=== PATIENT | male | born 1965 | race Caucasian/White ===

== ENCOUNTER 2025-05-01 06:24 | Observation (INO) ==
--- NOTE | 2025-04-04 13:37 | PAT Medication Instructions ---
Medication Instructions Date of Service April 04, 2025 Home Medications Medication Instructions Recorded tramadol 50 mg tablet 50 mg PO Q8H PRN pain #30 tabs 03/23/25 empagliflozin 25 mg tablet (Jardiance) 25 mg PO QAM metformin 500 mg tablet 1,000 mg PO BID glipizide 10 mg tablet 10 mg PO QAM aspirin 81 mg tablet,delayed release 81 mg PO QAM atorvastatin 80 mg tablet 80 mg PO QAM isosorbide mononitrate 60 mg tablet,extended release 24 hr 60 mg PO QAM lisinopril 5 mg tablet 5 mg PO QAM metoprolol tartrate 25 mg tablet 50 mg PO QAM nitroglycerin 0.4 mg sublingual tablet 0 mg sublingual UD PRN chest pain tirzepatide 5 mg/0.5 mL subcutaneous pen injector (Mounjaro) 10 mg subcut WK tramadol 50 mg tablet 50 mg PO Q8H PRN pain amlodipine 2.5 mg tablet 2.5 mg PO QAM cholecalciferol (vitamin D3) 50 mcg (2,000 unit) capsule (Vitamin D3) 50 mcg PO QAM docusate sodium 100 mg capsule (Colace) 100 mg PO QAM epinephrine 0.3 mg/0.3 mL injection, auto-injector 0.3 mg IM UD PRN bee sting allergy Continue as directed epinephrine 0.3 mg/0.3 mL injection, auto-injector 0.3 mg IM UD PRN bee sting allergy (if needed) nitroglycerin 0.4 mg sublingual tablet 0 mg sublingual UD PRN chest pain (if needed) STOP taking at least 7 days before surgery tirzepatide 5 mg/0.5 mL subcutaneous pen injector (Mounjaro) 10 mg subcut WK STOP taking 3 days before surgery empagliflozin 25 mg tablet (Jardiance) 25 mg PO QAM DO NOT take the morning of surgery metformin 500 mg tablet 1,000 mg PO BID glipizide 10 mg tablet 10 mg PO QAM lisinopril 5 mg tablet 5 mg PO QAM cholecalciferol (vitamin D3) 50 mcg (2,000 unit) capsule (Vitamin D3) 50 mcg PO QAM docusate sodium 100 mg capsule (Colace) 100 mg PO QAM Take morning of surgery With a small sip of water, OTHERWISE NOTHING TO EAT OR DRINK AFTER MIDNIGHT: aspirin 81 mg tablet,delayed release 81 mg PO QAM (unless surgeon directed otherwise) atorvastatin 80 mg tablet 80 mg PO QAM isosorbide mononitrate 60 mg tablet,extended release 24 hr 60 mg PO QAM metoprolol tartrate 25 mg tablet 50 mg PO QAM tramadol 50 mg tablet 50 mg PO Q8H PRN pain (if needed) amlodipine 2.5 mg tablet 2.5 mg PO QAM Take evening before surgery metformin 500 mg tablet 1,000 mg PO BID tramadol 50 mg tablet 50 mg PO Q8H PRN pain (if needed) Other Notes If you have any questions please call us at [phone] or [phone] or [phone] or [phone]
--- NOTE | 2025-04-10 08:54 | Anesthesiology Consultation ---
Date of Service April 10, 2025 Assessment & Plan (1) Encounter for pre-operative examination: - Check BSG DOS - Infectious disease screening: Per assessment on 04/10/25- No known recent infectious disease contacts or current infectious disease symptoms. - Outpatient joint assessment: Pt currently scheduled for inpatient pathway. If surgeon requests review for outpatient joint pathway, patient is not recommended candidate for outpatient joint program from anesthesia standpoint based on available information. - GLP-1 medication instructions: Patient informed by PAT to stop 7 days prior to surgery- voiced understanding. DOS 05/01. Advised last dose to be 04/23. - Cardiology visit (08/24/24): "Presence of coronary angioplasty implant and graft.. Episodes of chest pain described as a pressure are persistent and now associated with lightheadedness but not palpitations.. Lexiscan myoview.. normotensive today.. Continue current antihypertensive regimen.. Lipids are at goal.. Remain compliant with cpap.." > Subsequent abnormal stress test done 10/2024 which led to cardiac cath being done 11/2024 (unremarkable findings; continued medical management recommended by cardiology). Chart Review Chart Review: Patient seen in Pre Admission Testing Teaching & Discussion Pre-Anesthesia Teaching/Discussion Notes: Instructed NPO after midnight before surgery,except medications with 15 cc of water. Medication instructions provided according to the PAT guidelines. History Surgery Operation Date: 05/01/25 11:15 Proposed Procedures p Robotic Assisted Left Total Knee Arthroplasty - Dylan Wise, Height/Weight Height: 6 ft 1 in Weight: 124.5 kg Allergies Allergy/AdvReac Type Severity Reaction Status Date / Time bee pollen Allergy Unknown Throat Verified 04/04/25 13:58 swelling (required ED visit), carries Epi pen Medications Home Medications Medication Instructions Recorded Confirmed Last Taken empagliflozin 25 mg tablet 25 mg PO QAM 05/11/19 04/04/25 Unknown (Jardiance) metformin 500 mg tablet 1,000 mg PO BID 05/11/19 04/04/25 Unknown glipizide 10 mg tablet 10 mg PO QAM 09/30/21 04/04/25 Unknown aspirin 81 mg tablet,delayed 81 mg PO QAM 05/07/23 04/04/25 Unknown release atorvastatin 80 mg tablet 80 mg PO QAM 05/07/23 04/04/25 Unknown isosorbide mononitrate 60 mg 60 mg PO QAM 05/07/23 04/04/25 Unknown tablet,extended release 24 hr lisinopril 5 mg tablet 5 mg PO QAM 05/07/23 04/04/25 Unknown metoprolol tartrate 25 mg tablet 50 mg PO QAM 05/07/23 04/04/25 Unknown nitroglycerin 0.4 mg sublingual 0 mg sublingual UD PRN chest pain 05/07/23 04/04/25 Unknown tablet tirzepatide 5 mg/0.5 mL 10 mg subcut WK 08/01/24 04/04/25 04/02/25 subcutaneous pen injector (Sundar) tramadol 50 mg tablet 50 mg PO Q8H PRN pain #30 tabs 03/23/25 04/04/25 Unknown amlodipine 2.5 mg tablet 2.5 mg PO QAM 04/04/25 04/04/25 Unknown cholecalciferol (vitamin D3) 50 50 mcg PO QAM 04/04/25 04/04/25 Unknown mcg (2,000 unit) capsule (Vitamin D3) docusate sodium 100 mg capsule 100 mg PO QAM 04/04/25 04/04/25 Unknown (Colace) epinephrine 0.3 mg/0.3 mL 0.3 mg IM UD PRN bee sting allergy 04/04/25 04/04/25 Unknown injection, auto-injector Past Medical History Medical History CAD (coronary artery disease) 2020- PCI RUTH Mid LAD 11/2024- no stents, medical management recommended Cervical spine arthritis Diabetes History of COVID-19 (2020) HTN (hypertension), benign Left knee DJD Lumbar degenerative disc disease Lumbar herniated disc L5-S1 Right knee DJD Sleep apnea CPAP (occasional use) Tear of meniscus of left knee Thyroid nodule Monitored by pcp, stable Exercise / Class Metabolic Activity II 4-5 Yardwork/Stairs/Walk up hill (one FS: No CP, no SOB) Past Surgical History Surgical History History of bilateral carpal tunnel release History of cardiac cath 2020- PCI RUTH Mid LAD 11/2024- no stents, medical management recommended History of colonoscopy Past Anesthesia History No Hx of Anesthesia Complications and No Family Hx of Anesthesia Complications History of PONV No Hx of PONV and No Hx of Motion Sickness Social History Smoking Status: Never smoker Do You Dip or Chew Tobacco: Yes (Daily- advised none DOS) Hx Alcohol Use: Yes alcohol intake frequency: holidays/special occasions only Hx Substance Use: No substance use type: does not use Review of Systems Patient denies chest pain, shortness of breath, dyspnea on exertion, fever, chills, cough, wheezing, palpitations. Physical Exam Vital Signs BP 105/69 P 79 TEMP 97.4 SP02 97%RA RESP 16 Physical Full cervical extension range of motion. Full TMJ range of motion. TMD 3 finger breaths Mallampati Score II Dentition: missing molars/sides Lungs: clear throughout to auscultation Cardiac: regular rate and rhythm, no murmurs noted Spine: normal Carotid arteries: negative bruit Extremities: no LE edema Lab Results Anesthesia Preop Results Results Anesthesia Widget: WBC 6.68 K/ul (4.8-10.8) 04/10/25 Hgb 14.9 g/dl (14.0-18.0) 04/10/25 Hct 43.4 % (42.0-52.0) 04/10/25 Plt 252 K/uL (130-400) 04/10/25 Na 139 mmol/L (136-145) 04/10/25 K 4.2 mmol/L (3.5-5.1) 04/10/25 Cl 105 mmol/L (98-107) 04/10/25 CO2 27 mmol/L (21-32) 04/10/25 BUN 15 mg/dl (6-23) 04/10/25 Creat 0.71 mg/dl (0.6-1.4) 04/10/25 Glucose Level 162 mg/dl (70-99(Fasting)) H 04/10/25 PT 10.3 Seconds (9.0-12.0) 04/10/25 PTT 27 Seconds (21-31) 04/10/25 INR 0.9 (0.9-1.1) 04/10/25 HA1c 6.6 % (4.5-5.6) H 04/10/25 Blood Type O Positive 04/10/25 Antibody Screen NEGATIVE 04/10/25 Testing Electrocardiogram Date: 11/18/24 NSR at 62bpm. Low voltage QRS, consider pulmonary disease, pericardial effusion or normal variant. Poor data quality noted. Compared to 08/24/2024, PVCs no longer present per lime mixer comparison. Chest X-Ray Date: 04/10/25 FINDINGS: Cardiomediastinal and hilar silhouettes are within normal limits. No pneumothorax, pleural effusion, airspace consolidation or pulmonary edema. Spondylitic spurring of the spine. Bones appear grossly intact. IMPRESSION: No acute process. Stress Test Date: 10/28/24 Type: nuclear Abnormal Lexiscan nuclear myocardial perfusion imaging study demonstrating small apical inferior infarct with significant víctor-infarct ischemia involving the base, mid, and apical inferior wall. Ischemia likely involves RCA vascular territory. Resting LVEF 64%. Stress LVEF 52%. Cardiac Catheterization Date: 11/18/24 Hemodynamically insignificant coronary disease. Mild diffuse distal RCA disease. Mild LAD 30% stenosis. Patent stent in distal LAD. Mild diffuse disease in distal LAD beyond the stent. OM1 30% stenosis. Recommendations medical management of nonobstructive CAD.
--- NOTE | 2025-04-26 16:19 | History & Physical Report ---
Date of Service April 26, 2025 Assessment & Plan (1) Left knee DJD: We will proceed with a left total knee arthroplasty. Postoperatively, he will be started on aspirin for DVT prophylaxis and kept overnight in the hospital for postop medical management. He plans to have the hospital set up home health for discharge. History of Present Illness Chief Complaint: Osteoarthritis left knee. Primary Care Provider: Jhonatan Wong is a pleasant 59-year-old male who has been dealing with chronic increasing left knee pain. He is really struggling with his left knee. He has had a left knee arthroscopy in the past. He was one of my providers. He has been doing viscosupplementation without relief. He has an MRI of his left knee. The MRI confirms advanced medial compartmental arthritis. After failing conservative treatment, he has elected proceed with a left total knee arthroplasty. Allergies Allergy/AdvReac Type Severity Reaction Status Date / Time bee pollen Allergy Unknown Throat Verified 04/04/25 13:58 swelling (required ED visit), carries Epi pen Home Medications Medication Instructions Recorded Confirmed Type empagliflozin 25 mg tablet 25 mg PO QAM 05/11/19 04/04/25 History (Jardiance) metformin 500 mg tablet 1,000 mg PO BID 05/11/19 04/04/25 History glipizide 10 mg tablet 10 mg PO QAM 09/30/21 04/04/25 History aspirin 81 mg tablet,delayed 81 mg PO QAM 05/07/23 04/04/25 History release atorvastatin 80 mg tablet 80 mg PO QAM 05/07/23 04/04/25 History isosorbide mononitrate 60 mg 60 mg PO QAM 05/07/23 04/04/25 History tablet,extended release 24 hr lisinopril 5 mg tablet 5 mg PO QAM 05/07/23 04/04/25 History metoprolol tartrate 25 mg tablet 50 mg PO QAM 05/07/23 04/04/25 History nitroglycerin 0.4 mg sublingual 0 mg sublingual UD PRN chest pain 05/07/23 04/04/25 History tablet tirzepatide 5 mg/0.5 mL 10 mg subcut WK 08/01/24 04/04/25 History subcutaneous pen injector (Sundar) tramadol 50 mg tablet 50 mg PO Q8H PRN pain #30 tabs 03/23/25 04/04/25 Rx amlodipine 2.5 mg tablet 2.5 mg PO QAM 04/04/25 04/04/25 History cholecalciferol (vitamin D3) 50 50 mcg PO QAM 04/04/25 04/04/25 History mcg (2,000 unit) capsule (Vitamin D3) docusate sodium 100 mg capsule 100 mg PO QAM 04/04/25 04/04/25 History (Colace) epinephrine 0.3 mg/0.3 mL 0.3 mg IM UD PRN bee sting allergy 04/04/25 04/04/25 H istory injection, auto-injector Past Med/Surg History Problem List Encounter for pre-operative examination Low back pain radiating to left lower extremity Spondylolisthesis, grade 1 Spondylolysis of lumbar region Cervical radiculopathy Lumbar degenerative disc disease Cervical spine arthritis Hip weakness Neuroforaminal stenosis of lumbar spine Right knee DJD Left knee DJD Lumbar disc herniation Lumbar radiculopathy Thyroid nodule (Chronic) Cervical disc herniation (Chronic) Cervical facet syndrome (Chronic) Cervicalgia (Chronic) Medical History Lumbar herniated disc L5-S1 Cervical spine arthritis Left knee DJD Right knee DJD Lumbar degenerative disc disease History of COVID-19 (2020) Sleep apnea CPAP (occasional use) Thyroid nodule Monitored by pcp, stable CAD (coronary artery disease) 2020- PCI RUTH Mid LAD 11/2024- no stents, medical management recommended Tear of meniscus of left knee Diabetes HTN (hypertension), benign Surgical History History of colonoscopy History of cardiac cath 2020- PCI RUTH Mid LAD 11/2024- no stents, medical management recommended History of bilateral carpal tunnel release Social History Smoking Status: Never smoker Tobacco Type: Smokeless Tobacco (Dip or Chew) Do You Dip or Chew Tobacco: Yes (Daily- advised none DOS); Hx Alcohol Use: Yes Hx Substance Use: No Preferred Language: Serbian Communication Ability: Effective Communication Ability Comment: pt is at work per , listed hippa contact, offers to do phone call. Visual Impairment: No Limitations Hearing Ability: Normal Hand Umbrella Tipper Required: No Beliefs That Will Affect Care: None marital status: Current Living Situation: Spouse current occupational status: employed current occupation: Manager [employer] Feels Safe at Home: Yes Assistive Devices: CPAP and Glasses Review of Systems All systems reviewed & are unremarkable except as noted in HPI & below. Physical Exam On physical exam of the left knee, he has a slight varus deformity. He has tenderness palpation of the distal medial femoral condyle and over the medial kostas int line.. Constitutional WD/WN, vitals as above Eyes PERRL, conjunctivae normal, anicteric sclerae ENMT external ear and nose normal, oropharynx normal Neck trachea midline, no thyromegaly Respiratory normal respiratory effort Cardiovascular RRR, no murmur, no edema Gastrointestinal (Abdomen) normal bowel sounds, soft, nontender, no hepatosplenomegaly Psychiatric A+Ox3, euthymic affect Results & Data Results & Data Laboratory Results . Diagnostic Findings X-rays of the left knee show advanced medial compartmental arthritis with joint space narrowing, osteophyte formation, and [id number] reticulation. PG Care Time/CCT Total # of Minutes Spent Total Time Spent with Patient: Total time spent is greater than 50% in coordination of care (as documented) at patient's floor/unit and/or counseling patient: Coding Level of Care Code None Diagnoses Left knee DJD M17.12
[2025-05-01] MEDS ORDERED: BUPIVACAINE 0.5 % 5 MG/1 ML PF 10ML VIAL ONE (06:27)
[2025-05-01] MEDS ORDERED: ROPIVACAINE 0.5% 5 MG/ML 30 ML VIAL ONE (06:27)
[2025-05-01] MEDS: LR 60ML/HR IV SCH (06:46)
[2025-05-01] MEDS: LR 500ML BOLUS, THEN 15ML/HR IV SCH (06:46)
[2025-05-01] MEDS: GABAPENTIN 300 MG CAP PO SCH (06:47)
[2025-05-01] MEDS: ACETAMINOPHEN 500 MG TAB PO SCH ×2 (06:47→13:55)
[2025-05-01] MEDS: FAMOTIDINE 20 MG TAB PO SCH (06:47)
[2025-05-01] MEDS: dexAMETHasone**PF** 10 MG/ML VIAL IV SCH (06:47)
[2025-05-01] MEDS ORDERED: LIDOCAINE 2% 2 ML VIAL/AMP(20MG/ML) INFIL ONE (07:05)
[2025-05-01] MEDS ORDERED: DexMEDEtomidine HCL IV 100 MCG/ML VIAL IV ONE (07:05)
[2025-05-01] MEDS ORDERED: MIDAZOLAM HCL 1 MG/ML 2ML VIAL ONE ×2 (07:05→08:06)
[2025-05-01] MEDS ORDERED: KETAMINE HCL 10MG/ML SYR ONE (07:05)
[2025-05-01] MEDS ORDERED: PROPOFOL IV EMULSION 10 MG/ML 20 ML VIAL IV ONE (07:05)
[2025-05-01] MEDS ORDERED: ONDANSETRON INJ 2 MG/ML 2 ML VIAL ONE (07:07)
[2025-05-01] MEDS: TRANEXAMIC ACID 1,000 MG **IV Pre-op IV SCH (07:40)
--- NOTE | 2025-05-01 07:43 | History & Physical Bridge Note ---
Date of Service May 01, 2025 History & Physical Bridge Note I have examined the patient, reviewed the History & Physical and in the interval since the performance of the History & Physical I have noted the following changes of clinical significance: no changes noted
[2025-05-01] MEDS: ceFAZolin 3000MG 3,000 MG/72.5 ML BAG IV SCH (07:55)
[2025-05-01] MEDS ORDERED: GLYCOPYRROLATE 0.2 MG/ML VIAL ONE (07:59)
[2025-05-01] MEDS: ORTHO JOINT ANESTHETIC ONE (08:35)
[2025-05-01] MEDS: ROPIV 0.5% 246mg, Ketorolac 30mg, EPINEPHrine 0.5mg in NSS INFIL SCH (08:35)
[2025-05-01] MEDS ORDERED: PHENYLEPHRINE 100MCG/ML 5ML SYR ONE (08:39)
--- NOTE | 2025-05-01 10:28 | XRay Report ---
XR knee LT 1 or 2V routine HISTORY: 59 years-old Male Surgical Post Op left knee arthroplasty COMPARISON: MRI 03/16/2025 TECHNIQUE: 2 views of the left knee FINDINGS: Satisfactory alignment of the total joint arthroplasty with patellar resurfacing. Arterial calcificat ions. Expected postoperative soft tissue swelling with deep tissue air. IMPRESSION: Left knee arthroplasty with expected postoperative findings. ACT 112: Negative or not required by law. The above report was generated using voice recognition software. It may contain grammatical, syntax o r spelling errors. Electronically signed by: Karl Stone M.D. 05/01/2025 10:27 AM
--- NOTE | 2025-05-01 10:34 | Operative Report ---
PG Post Operative Report Pre & Post Diagnosis Operation Date: 05/01/25 07:55 Pre-Op Diagnosis: Left Knee Degenerative Joint Disease Post-Op Diagnosis: Left Knee Degenerative Joint Disease I identified the patient and participated in the time-out.: Yes Procedure Operation Date: 05/01/25 07:55 Actual Procedures p Robotic Assisted Left Total Knee Arthroplasty(Left) - Dylan Wise DO Surgeon Dylan Wise DO Fibrous Wallboard Inspector Terry Lucero PA-C Estimated Blood Loss 30 Findings Consistent with Post-Op Diagnosis Specimens Left femoral and tibial bone Description of Procedure Implants used: I used a Ariela Persona total knee arthroplasty system with a size 11 standard femur, G tibia, 31 oval patella, and a size 10 CPS polyethylene bearing. All components were cemented in place with Biomet cement. Marvin plummer [facility] for the above procedure. He was seen in the preoperative holding area and the operative extremity was identified and signed. he was given a preoperative antibiotic, TXA, a spinal anesthetic and an adductor nerve block. He was taken back to the operating room and laid on the table in supine position. He was given basic sedation. The operative knee was then prepped and draped in sterile fashion. A timeout was done, and the patient and the operative extremity was properly identified. A midline incision was made directly over the patella. Dissection was taken down to the extensor mechanism. A medial parapatellar arthrotomy was used. The medial retinaculum was released and the fat pad was mostly excised. The knee was flexed and the ACL, PCL, and meniscus were removed. The alignment of the knee replacement was assisted with a [employer] robotic knee. The femoral array was pinned in the distal femur and the tibial array was pinned using a percutaneous technique in the upper shaft of the tibia. The robot was appropriately calibrated and the structure of the knee was mapped out. The components were then manipulated on the screen to account for any malalignment and to assist in gap balancing. Once I was happy with the placement of the components on the screen, a distal femoral cutting guide was brought in place. The distal femur was then resected. The femur measured to be a size 11. A 4-in-1 cutting block was then put into place by the robot and 2 peg holes were drilled. The 4-in-1 cutting block was then impacted into place and anterior, posterior, and chamfer cuts were made. The cutting block was then brought down to the tibia and pinned into place. The proximal tibia was then resected. The posterior aspect of the knee was then opened up and any additional meniscus fragments and osteophytes were removed. The tibia measured to be a size G. The tibial plate was then placed in the appropriate rotation and the tibia was drilled and punched. Trial components were then placed. The patella was then everted and 9 mm was resected off the posterior aspect of the patella. The patella measured to be a size 31 oval. 3 peg holes were then drilled. A trial patella was placed. A size 10 CPS polyethylene insert was then trialed. The knee was brought through a full range of motion and felt to be stable. Trial components were then removed. The surrounding soft tissues were injected with 100 cc of an orthopedic pain control cocktail. All components were then cemented into place with Biomet cement. The final polyethylene insert was then snapped into place. Once cement was dry the tourniquet was deflated. Hemostasis was obtained. A dilute betadyne lavage was then done for 3 minutes. The joint was then irrigated with normal saline solution. The medial parapatellar arthrotomy was then closed with #1 Vicryl suture. The skin was closed with 2-0 Vicryl, 3-0V lock suture, and Cindy zip line. A soft compressive dressing was placed. He was then transferred to a hospital bed and taken to the postanesthesia care unit in stable condition. He tolerated the procedure well. Terry Lucero PA-C, was present for the entire procedure. He was critical for patient positioning, prepping, draping, retraction exposure, wound closure and application of sterile dressing. I attest to the content of the Intraoperative Record and any orders documented therein. Any exceptions are noted below.
--- NOTE | 2025-05-01 10:49 | Anesthesiology Progress Note ---
Date of Service May 01, 2025 Anesthesia Post Procedure Vital Signs Vital Signs: Temp Pulse Pulse Resp BP Pulse Ox O2 Del Method 05/01/25 10:45 60 13 110/59 L 94 Nasal Cannula 05/01/25 10:30 62 12 106/61 93 Nasal Cannula 05/01/25 10:20 36.6 C 61 19 103/59 L 95 Nasal Cannula 05/01/25 10:10 59 L 15 102/60 95 Oxymask 05/01/25 10:00 57 L 12 108/60 93 Oxymask 05/01/25 09:50 60 18 103/61 93 Oxymask 05/01/25 09:47 36.8 C 66 16 90/55 L 96 Oxymask 05/01/25 06:31 Room Air, CPAP 05/01/25 06:31 36.6 C 62 18 144/86 H 97 Room Air, CPAP O2 Flow Rate 05/01/25 10:45 2 05/01/25 10:30 2 05/01/25 10:20 2 05/01/25 10:10 3 05/01/25 10:00 3 05/01/25 09:50 6 05/01/25 09:47 6 05/01/25 06:31 05/01/25 06:31 Pain Intensity Left Knee: Pain Intensity: 6 Transfer of Care Handoff Completed per policy Notes Mental Status: alert / awake / arousable Patient Amnestic to Procedure: Yes Nausea / Vomiting: adequately controlled Pain: adequately controlled Airway Patency, RR, SpO2: stable & adequate BP & HR: stable & adequate Hydration State: stable & adequate Neuraxial Anesthesia: was administered and sensory block is resolving Anesthetic Complications: no major complications apparent and Pt Satisfied with anesthetic care
[2025-05-01] MEDS ORDERED: HYDROmorphone INJ 0.5 MG/0.5 ML SYR IV PRN (11:30)
[2025-05-01] MEDS ORDERED: MAGNESIUM HYDROXIDE SUSP 30 ML UDC PO PRN (11:30)
[2025-05-01] MEDS ORDERED: METOCLOPRAMIDE HCL INJ 5 MG/ML 2 ML VIAL IV PRN (11:30)
[2025-05-01] MEDS ORDERED: PHARMACY GLYCEMIC MGMT CONSULT PRN (11:30)
[2025-05-01] MEDS ORDERED: ONDANSETRON INJ 2 MG/ML 2 ML VIAL IV PRN (11:30)
[2025-05-01] MEDS ORDERED: NON-FORMULARY MEDICATION (Tirzepatide [Mounjaro] 5 mg/0.5 mL pen injector) SQ SCH (11:30)
[2025-05-01] MEDS ORDERED: NALOXONE HCL 0.4 MG/1 ML VIAL/CARP IV PRN (11:30)
[2025-05-01] MEDS ORDERED: EPINEPHrine INJ 1 MG/ML AMP IM PRN (11:45)
[2025-05-01] MEDS: SODIUM CHLORIDE 0.9% 1,000 ML IV SCH (12:11)
[2025-05-01] MEDS ORDERED: DEXTROSE 50% 50 ML SYRINGE IV PRN (12:15)
[2025-05-01] MEDS ORDERED: GLUCAGON FOR INJ 1 MG VIAL SQ PRN (12:15)
[2025-05-01] MEDS ORDERED: CARBOHYDRATES FOR HYPOGLYCEMIA PO PRN (12:15)
[2025-05-01] MEDS ORDERED: GLUCOSE 10 TAB/TUBE PO PRN (12:15)
[2025-05-01] MEDS ORDERED: GLUCOSE 40% GEL 15 GM TUBE PO PRN (12:15)
[2025-05-01] MEDS: INSULIN ASPART PER UNIT CHARGE SC SCH (12:33)
[2025-05-01] MEDS: LANTUS PER UNIT CHARGE SC ONE (12:33)
[2025-05-01] MEDS: KETOROLAC TROMETHAMINE 15 MG/ML VIAL IV SCH (12:36)
--- NOTE | 2025-05-01 14:03 | Pharmacy Report ---
Pharmacy Glycemic Short Note 2 - Date of Service May 01, 2025 - Glycemic Short BSG Results (Last 24 hours): 05/01/25 05/01/25 05/01/25 06:42 09:51 11:55 POC Glucose 217 H 202 H 198 H OUTPATIENT ANTIDIABETIC REGIMEN: * jardiance 25 mg daily, glipizide 10 mg daily, metformin 1 gm bid, mounjaro 10 mg SQ weekly ASSESSMENT: * 59 year old s/p surgery, POD 0 - pharmacy consulted for glycemic management. Postop BSG >180 - did receive IV dexamethasone preoperatively therefore anticipate steroid induced hyperglycemia. Will give Lantus 0.2units/kg x 1 now to cover steroid effects and start novolog weight based stress 3 dosing. PLAN FOR INPATIENT GLYCEMIC CONTROL: * Hold outpatient oral diabetes medications * Basal insulin * Lantus 25 units x 1 now * Bolus insulin * NovoLog per scale ACHS or Q6hrs while NPO * Goal Range: Low 110 mg/dL - High 140 mg/dL * Correction Factor: 15 mg/dL/unit * Nutritional / Prandial insulin per carb ratio of 1 unit per 5 grams CHO c onsumed
[2025-05-01 14:31] VITALS: RESP 16
[2025-05-01] MEDS: DOCUSATE SODIUM 100 MG CAP PO SCH (20:25)
[2025-05-01] MEDS: SENNA 8.6 MG TAB PO SCH (20:25)
[2025-05-01] MEDS: ASPIRIN 81 MG ECTAB PO SCH (20:25)
[2025-05-01] MEDS: LANTUS PER UNIT CHARGE SC SCH (20:37)
[2025-05-02] MEDS: INSULIN ASPART PER UNIT CHARGE SC SCH (00:08)
[2025-05-02 07:33] VITALS: TEMP 97.9; O2SAT 96
[2025-05-02] MEDS: LANTUS PER UNIT CHARGE SC SCH (08:17)
[2025-05-02 08:22] VITALS: BP 141/79; PULSE 62
[2025-05-02] MEDS: METOPROLOL SUCC 50MG EXT REL TAB PO SCH (08:23)
[2025-05-02] MEDS: ATORVASTATIN 40 MG TAB PO SCH (08:23)
[2025-05-02] MEDS: MULTIVITAMIN TAB PO SCH (08:23)
[2025-05-02] MEDS: ISOSORBIDE MONO EXTENDED REL 60 MG TABCR PO SCH (08:24)
--- NOTE | 2025-05-02 08:49 | Orthopedic Progress Note ---
Date of Service May 02, 2025 Assessment & Plan (1) Status post total left knee replacement: * Continue Current Treatment * Disposition: home * Daily treatment: Physical Therapy/ Occupational Therapy per protocol * Weight bearing status: WBAT * Continue to monitor for ABLA * Pain control * DVT prophylaxis, ASA * Office/hospital f/u 2 weeks for progress check and staple/suture removal * Plan for discharge today pending PT/OT clearance Subjective . Active Problems: S/p left TKA POD 1 59 y/o male s/p left TKA. Doing well overall, pain managed and improved function. Denies fever/chills, chest pain/SOB, nausea/vomiting. Otherwise no complaints. Review of Systems All systems reviewed & are unremarkable except as noted in HPI & below. Physical Exam . * General: Alert and oriented, no acute distress * Constitutional: well-developed, well-nourished. * Respiratory: Normal respiratory effort, no distress * Gastrointestinal: No tenderness to palpation, no rigidity or guarding. * Skin: No rash or lesion. * Neurologic: Grossly normal * Musculoskeletal: left knee surgical dressing CDI, not removed for exam. Otherwise no obvious deformity or overlying skin changes RLE. Diffuse TTP distal thigh and knee region. Otherwise no specific tenderness of proximal thigh, lower leg, foot/ankle. AROM knee flexion 110 degrees. AROM foot/ankle intact. Sensation intact plantar/dorsal foot. Brisk capillary refill. Results & Data Results & Data Laboratory Results . Diagnostic Findings . Knee X-Ray 05/01/25 09:50 XR knee LT 1 or 2V routine HISTORY: 59 years-old Male Surgical Post Op left knee arthroplasty COMPARISON: MRI 03/16/2025 TECHNIQUE: 2 views of the left knee FINDINGS: Satisfactory alignment of the total joint arthroplasty with patellar resurfacing. Arterial calcifications. Expected postoperative soft tissue swelling with deep tissue air. IMPRESSION: Left knee arthroplasty with expected postoperative findings. ACT 112: Negative or not required by law. The above report was generated using voice recognition software. It may contain grammatical, syntax or spelling errors. Electronically signed by: Karl Stone M.D. 05/01/2025 10:27 AM PG Care Time/CCT Total # of Minutes Spent Total Time Spent with Patient: Total time spent is greater than 50% in coordination of care (as documented) at patient's floor/unit and/or counseling patient: Coding Level of Care Code 99851 Post Operative Follow-Up Diagnoses Status post total left knee replacement Z96.652
[2025-05-02] MEDS ORDERED: glipiZIDE 5 MG TAB PO SCH (09:00)
[2025-05-02] MEDS ORDERED: EMPAGLIFLOZIN 25 MG TAB PO SCH (09:00)
== END 2025-05-02 10:43 | disposition home or self-care (01) ==
LOC: ASU 06:24 → 3N 06:24 → EDINP 06:24

== ENCOUNTER 2025-08-11 08:12 | Inpatient (IN) ==
--- NOTE | 2025-08-01 10:45 | PAT Medication Instructions ---
Medication Instructions Date of Service August 01, 2025 Home Medications Medication Instructions Recorded tramadol 50 mg tablet 50 mg PO Q8H PRN pain #30 tabs 07/05/25 metformin 500 mg tablet 1,000 mg PO BID glipizide 10 mg tablet 10 mg PO QAM atorvastatin 80 mg tablet 80 mg PO QAM isosorbide mononitrate 60 mg tablet,extended release 24 hr 60 mg PO QAM lisinopril 5 mg tablet 5 mg PO QAM metoprolol tartrate 25 mg tablet 50 mg PO QAM nitroglycerin 0.4 mg sublingual tablet 0 mg sublingual UD PRN chest pain tirzepatide 5 mg/0.5 mL subcutaneous pen injector (Mounjaro) 10 mg subcut WK amlodipine 2.5 mg tablet 2.5 mg PO QAM cholecalciferol (vitamin D3) 50 mcg (2,000 unit) capsule (Vitamin D3) 50 mcg PO QAM docusate sodium 100 mg capsule (Colace) 100 mg PO QAM epinephrine 0.3 mg/0.3 mL injection, auto-injector 0.3 mg IM UD PRN bee sting allergy tramadol 50 mg tablet 50 mg PO Q8H PRN pain aspirin 81 mg tablet,delayed release 81 mg PO DAILY Continue as directed nitroglycerin 0.4 mg sublingual tablet 0 mg sublingual UD PRN chest pain (if needed) epinephrine 0.3 mg/0.3 mL injection, auto-injector 0.3 mg IM UD PRN bee sting allergy (if needed) ASK your prescriber and surgeon aspirin 81 mg tablet,delayed release 81 mg PO DAILY STOP taking at least 7 days before surgery tirzepatide 5 mg/0.5 mL subcutaneous pen injector (Mounjaro) 10 mg subcut WK DO NOT take the morning of surgery metformin 500 mg tablet 1,000 mg PO BID glipizide 10 mg tablet 10 mg PO QAM lisinopril 5 mg tablet 5 mg PO QAM cholecalciferol (vitamin D3) 50 mcg (2,000 unit) capsule (Vitamin D3) 50 mcg PO QAM docusate sodium 100 mg capsule (Colace) 100 mg PO QAM Take morning of surgery With a small sip of water, OTHERWISE NOTHING TO EAT OR DRINK AFTER MIDNIGHT: atorvastatin 80 mg tablet 80 mg PO QAM isosorbide mononitrate 60 mg tablet,extended release 24 hr 60 mg PO QAM metoprolol tartrate 25 mg tablet 50 mg PO QAM amlodipine 2.5 mg tablet 2.5 mg PO QAM tramadol 50 mg tablet 50 mg PO Q8H PRN pain (if needed) Take evening before surgery metformin 500 mg tablet 1,000 mg PO BID tramadol 50 mg tablet 50 mg PO Q8H PRN pain (if needed) Other Notes If you have any questions please call us at [phone] or [phone] or [phone] or [phone]
--- NOTE | 2025-08-01 12:50 | Anesthesiology Consultation ---
Date of Service August 01, 2025 Assessment & Plan (1) Encounter for pre-operative examination: - Check BSG DOS - Infectious disease screening: Per assessment on 08/01/25- No known recent infectious disease contacts or current infectious disease symptoms. - GLP-1 medication instructions: Patient informed by PAT to stop 7 days prior to surgery- voiced understanding. DOS 08/11. Patient unsure which day of the week he will be taking next dose but aware not to take after 08/04/25. - Cardiology visit (08/24/24): "Presence of coronary angioplasty implant and graft.. Episodes of chest pain described as a pressure are persistent and now associated with lightheadedness but not palpitations.. Lexiscan myoview.. normotensive today.. Continue current antihypertensive regimen.. Lipids are at goal.. Remain compliant with cpap.." > Subsequent abnormal stress test done 10/2024 which led to cardiac cath being done 11/2024 (unremarkable findings; continued medical management recommended by cardiology). - S/P Left TKA 05/01/25: SAB + regional at [facility]. No issues noted per post-op anesthesia progress note. - PCP visit 08/02/25: "He manages his diabetes with Mounjaro 10 mg weekly, which is on hold until after his surgery, metformin ER 500 mg, two tablets twice daily, and Toujeo insulin 24 units daily. He is overdue for a follow-up with medication therapy management for diabetes control.. Postoperative DKA after knee replacement. On Mounjaro, metformin ER, and Toujeo insulin. Mounjaro on hold until surgery.. Continue metformin ER 500 mg, two tablets twice daily.. Continue Toujeo insulin 24 units daily... Hold Mounjaro until after surgery per Ortho team.. Notify MTM team of upcoming procedure and concerns.. Complete diabetic eye exam today. Hypotension.. Blood pressure at 92/53 mmHg without symptoms. Inactivity due to pain.. Stop amlodipine due to current blood pressure.. Monitor home blood pressure readings.. Report consistent numbers less than 100/60 at rest or any new symptomatic concerns.. Coronary artery disease status post angioplasty with implant and graft.. History of angioplasty and stent placement. No current chest pain. Overdue for cardiology follow-up.. Continue Imdur 60 mg daily.. Continue lisinopril 5 mg daily.. Continue metoprolol ER 25 mg, two tablets daily.. Schedule cardiology follow-up." - Medical therapy management (MTM) clinic Pharmacy note 08/04/25: "[facility] planned lumbar spine surgery.[facility] DKA following knee replacement 05/2025. Patient/ express concern about risks for similar episodes following surger y. Mounjaro to be held 2 weeks prior to surgery.. Per patient, anticipated to be admitted to hospital for 3-4 days following surgery.. STOPPED in : Toujeo U300 24 units daily.. STARTED: Glipizide XL 10mg daily.." - Spoke with Angelina ([facility]IP[facility] contact) via phone 08/07/25. She confirmed that amlodipine has been stopped and BP has significantly improved- monitoring closely at home; most recent BP check at home was 117/72. She confirmed Toujeo has been discontinued by [facility] MTM clinic that manages patient's diabetes and they are aware of upcoming surgery. Chart Review Chart Review: Acceptable Risk for Surgery (pending evlauation DOS) and Patient seen in Pre Admission Testing Teaching & Discussion Pre-Anesthesia Teaching/Discussion Notes: Instructed NPO after midnight before surgery,except medications with 15 cc of water. Medication instructions provided according to the PAT guidelines. History Surgery Operation Date: 08/11/25 09:20 Proposed Procedures p L5-S1 Anterior Lumbar Interbody Fusion with Cage Posterior Fusion Instrumentation Decompression Spinal Cord Monitoring - Bertin Briones MD Height/Weight Height: 6 ft 1 in Weight: 122.3 kg Allergies Allergy/AdvReac Type Severity Reaction Status Date / Time bee pollen Allergy Severe Throat Verified 08/01/25 07:36 swelling (required ED visit), carries Epi pen Medications Home Medications Medication Instructions Recorded Confirmed Last Taken metformin 500 mg tablet 1,000 mg PO BID 05/11/19 08/01/25 04/29/25 glipizide 10 mg tablet 10 mg PO QAM 09/30/21 08/01/25 04/27/25 atorvastatin 80 mg tablet 80 mg PO QAM 05/07/23 08/01/25 05/01/25 05:00 isosorbide mononitrate 60 mg 60 mg PO QAM 05/07/23 08/01/25 05/01/25 05:00 tablet,extended release 24 hr lisinopril 5 mg tablet 5 mg PO QAM 05/07/23 08/01/25 04/29/25 metoprolol tartrate 25 mg tablet 50 mg PO QAM 05/07/23 08/01/25 05/01/25 05:00 nitroglycerin 0.4 mg sublingual 0 mg sublingual UD PRN chest pain 05/07/23 08/01/25 Unknown tablet tirzepatide 5 mg/0.5 mL 10 mg subcut WK 08/01/24 08/01/25 04/23/25 subcutaneous pen injector (Mounjaro) cholecalciferol (vitamin D3) 50 50 mcg PO QAM 04/04/25 08/01/25 04/27/25 mcg (2,000 unit) capsule (Vitamin D3) docusate sodium 100 mg capsule 100 mg PO QAM 04/04/25 08/01/25 04/27/25 (Colace) epinephrine 0.3 mg/0.3 mL 0.3 mg IM UD PRN bee sting allergy 04/04/25 08/01/25 Unknown injection, auto-injector tramadol 50 mg tablet 50 mg PO Q8H PRN pain #30 tabs 07/05/25 08/01/25 Unknown aspirin 81 mg tablet,delayed 81 mg PO DAILY 08/01/25 08/01/25 Unknown release Past Medical History Medical History CAD (coronary artery disease) 2020- PCI RUTH Mid LAD 11/2024- no stents, medical management recommended Cervical disc herniation Cervical facet syndrome Cervical radiculopathy Cervical spine arthritis Diabetes History of COVID-19 (2020) HTN (hypertension), benign Hx of diabetes with ketoacidosis (05/2025) [facility] 05/2025 DM meds adjusted, no issues since Low back pain radiating to left lower extremity Lumbar degenerative disc disease Lumbar herniated disc L5-S1 Neuroforaminal stenosis of lumbar spine Right knee DJD Sleep apnea CPAP Spondylolisthesis, grade 1 Thyroid nodule Monitored by pcp, stable Exercise / Class Metabolic Activity II 4-5 Yardwork/Stairs/Walk up hill (One FS: No CP, no SOB) Past Surgical History Surgical History History of bilateral carpal tunnel release History of cardiac cath (11/2024) 2020- PCI RUTH Mid LAD- [place] 11/2024- no stents, medical management recommended- Jennifer- follows with dr. Eli Khan- [facility] (last saw 08/2024) History of colonoscopy Status post total left knee replacement (04/2025) Past Anesthesia History No Hx of Anesthesia Complications and No Family Hx of Anesthesia Complications History of PONV No Hx of PONV and No Hx of Motion Sickness Social History Smoking Status: Never smoker Do You Dip or Chew Tobacco: No Hx Alcohol Use: Yes alcohol intake frequency: holidays/special occasions only (Very rare) Hx Substance Use: No substance use type: does not use Review of Systems Patient denies chest pain, shortness of breath, dyspnea on exertion, fever, chills, cough, wheezing. Physical Exam Vital Signs BP 106/65 P 79 TEMP 98.2 SP02 97%RA RESP 16 Physical Full cervical extension range of motion. Full TMJ range of motion. TMD 3 finger breaths Mallampati Score II Dentition: missing molars/sides Lungs: clear throughout to auscultation Cardiac: regular rate and rhythm, no murmurs noted Spine: normal Carotid arteries: negative bruit Extremities: no LE edema Lab Results Anesthesia Preop Results Results Anesthesia Widget: WBC 7.20 K/ul (4.8-10.8) 08/01/25 Hgb 13.3 g/dL (14.0-18.0) L 08/01/25 Hct 38.9 % (42.0-52.0) L 08/01/25 Plt 284 K/uL (130-400) 08/01/25 Na 136 mmol/L (136-145) 08/01/25 K 4.3 mmol/L (3.5-5.1) 08/01/25 Cl 102 mmol/L (98-107) 08/01/25 CO2 27 mmol/L (21-32) 08/01/25 BUN 17 mg/dl (6-23) 08/01/25 Creat 0.61 mg/dl (0.6-1.4) 08/01/25 Glucose Level 201 mg/dl (70-99(Fasting)) H 08/01/25 PT 10.3 Seconds (9.0-12.0) 08/01/25 PTT 25 Seconds (21-31) 08/01/25 INR 1.0 (0.9-1.1) 08/01/25 HA1c 7.6 % (4.5-5.6) H 08/01/25 Blood Type O Positive 08/01/25 Antibody Screen NEGATIVE 08/01/25 Testing Electrocardiogram Date: 11/18/24 NSR at 62bpm. Low voltage QRS, consider pulmonary disease, pericardial effusion or normal variant. Poor data quality noted. Compared to 08/24/2024, PVCs no longer present per liquor blender comparison. Chest X-Ray Date: 04/10/25 FINDINGS: Cardiomediastinal and hilar silhouettes are within normal limits. No pneumothorax, pleural effusion, airspace consolidation or pulmonary edema. Spondylitic spurring of the spine. Bones appear grossly intact. IMPRESSION: No acute process. Stress Test Date: 10/28/24 Type: nuclear Abnormal Lexiscan nuclear myocardial perfusion imaging study demonstrating small apical inferior infarct with significant víctor-infarct ischemia involving the base, mid, and apical inferior wall. Ischemia likely involves RCA vascular territory. Resting LVEF 64%. Stress LVEF 52%. Cardiac Catheterization Date: 11/18/24 Hemodynamically insignificant coronary disease. Mild diffuse distal RCA di sease. Mild LAD 30% stenosis. Patent stent in distal LAD. Mild diffuse disease in distal LAD beyond the stent. OM1 30% stenosis. Recommendations medical management of nonobstructive CAD.
[2025-08-11] MEDS ORDERED: LIDOCAINE 2% 2 ML VIAL/AMP(20MG/ML) INFIL ONE ×2 (08:28→09:04)
[2025-08-11] MEDS ORDERED: ONDANSETRON INJ 2 MG/ML 2 ML VIAL ONE (08:28)
[2025-08-11] MEDS ORDERED: ROCURONIUM BROMIDE 10 MG/ML 5 ML VIAL IV ONE ×3 (08:28→12:22)
[2025-08-11] MEDS ORDERED: PROPOFOL IV EMULSION 10 MG/ML 20 ML VIAL IV ONE (08:28)
[2025-08-11] MEDS ORDERED: MIDAZOLAM HCL 1 MG/ML 2ML VIAL ONE (08:31)
[2025-08-11] MEDS ORDERED: SUGAMMADEX SODIUM 200 MG/2 ML VIAL IV ONE ×2 (08:32→15:26)
[2025-08-11] MEDS: LR 15ML/HR IV SCH (08:38)
[2025-08-11] MEDS: ACETAMINOPHEN 500 MG TAB PO SCH (08:47)
[2025-08-11] MEDS: LR 60ML/HR IV SCH (08:52)
[2025-08-11] MEDS ORDERED: ATROPINE SULFATE 0.1 MG/ML 10ML SYR IV PRN (09:13)
[2025-08-11] MEDS ORDERED: ONDANSETRON INJ 2 MG/ML 2 ML VIAL IV PRN ×2 (09:13→19:15)
--- NOTE | 2025-08-11 09:40 | History & Physical Bridge Note ---
Date of Service August 11, 2025 History & Physical Bridge Note I have examined the patient, reviewed the History & Physical and in the interval since the performance of the History & Physical I have noted the following changes of clinical significance: no changes noted
[2025-08-11] MEDS ORDERED: REMIFENTANIL HCL 1 MG VIAL IV ONE (09:52)
[2025-08-11] MEDS: ceFAZolin 3000MG 3,000 MG/72.5 ML BAG IV SCH ×2 (10:20→21:58)
[2025-08-11] MEDS: VANCOMYCIN HCL 1000MG/20ML VIAL ONE (14:26)
[2025-08-11] MEDS ORDERED: KETAMINE HCL 10MG/ML SYR ONE (15:06)
[2025-08-11] MEDS ORDERED: ceFAZolin 330 MG/ML 1 GM VIAL ONE (15:16)
[2025-08-11] MEDS: THROMBIN 5000 UNITS KIT ONE (15:16)
[2025-08-11] MEDS: GELATIN SPONGE 12-7MM ONE (15:16)
[2025-08-11] MEDS: ceFAZolin 3000MG 3,000 MG/72.5 ML BAG IV ONE (15:18)
[2025-08-11] MEDS ORDERED: DEXAMETHASONE SOD INJ 4 MG/ML VIAL ONE (15:29)
[2025-08-11] MEDS ORDERED: PHENYLEPHRINE HCL 10 MG/ML VIAL ONE (15:34)
[2025-08-11] MEDS ORDERED: PROPOFOL IV EMULSION 10 MG/ML 100 ML VIAL IV ONE (15:39)
[2025-08-11] MEDS: BUPIVACAINE/EPINEPHRINE 0.5% MPF 1:200,000 30 ML VIAL ONE (15:59)
--- NOTE | 2025-08-11 17:02 | Post Operative Brief Note ---
PG Immediate Post Op with CF Date of Surgery August 11, 2025 Pre & Post Diagnosis Operation Date: 08/11/25 09:20 Pre-Op Diagnosis: (1) Low back pain radiating to left lower extremity (2) Spondylolisthesis, grade 1 (3) Spondylolysis of lumbar region (4) Lumbar radiculopathy Post-Op Diagnosis: (1) Low back pain radiating to left lower extremity (2) Spondylolisthesis, grade 1 (3) Spondylolysis of lumbar region (4) Lumbar radiculopathy I identified the patient and participated in the time-out.: Yes Procedure Operation Date: 08/11/25 09:20 Actual Procedures p L5-S1 Anterior Lumbar Interbody Fusion with Cage Posterior Fusion Percutaneous Instrumentation with Spinal Cord Monitoring(Not Applicable) - Bertin Briones MD Surgeon Bertin Briones MD Explosive Ordnance Disposal Specialist Simba Estimated Blood Loss 500 Findings Consistent with Post-Op Diagnosis Specimens Specimen Description: No specimen per surgeon Drains Britt Catheter (Inserted at procedure start by Madhavi Zabala RN; 10cc in balloon; clear, yellow urine returned, leg strap applied)
[2025-08-11] MEDS: HYDROmorphone INJ 0.5 MG/0.5 ML SYR IV PRN (17:12)
[2025-08-11] MEDS: HYDROmorphone INJ 1 MG/ML SYRINGE ONE (17:30)
--- NOTE | 2025-08-11 17:57 | Anesthesiology Progress Note ---
Date of Service August 11, 2025 Anesthesia Post Procedure Vital Signs Vital Signs: Temp Pulse Resp BP Pulse Ox O2 Del Method O2 Flow Rate 08/11/25 17:45 83 12 166/96 H 100 Nasal Cannula 2 08/11/25 17:35 36.3 C L 78 12 163/90 H 100 Nasal Cannula 2 08/11/25 17:25 80 12 164/89 H 99 Nasal Cannula 2 08/11/25 17:15 78 17 190/98 H 100 Nasal Cannula 4 08/11/25 17:04 80 17 190/98 H 100 Nasal Cannula 4 08/11/25 16:55 81 17 100 Nasal Cannula 4 08/11/25 16:45 82 14 185/90 H 100 Nasal Cannula 4 08/11/25 16:35 81 15 182/97 H 100 Oxymask 5 08/11/25 16:25 82 19 170/98 H 100 Oxymask 5 08/11/25 16:15 36.0 C L 84 19 159/89 H 98 Oxymask 5 08/11/25 08:17 36.9 C 82 20 159/87 H 97 Room Air Pain Intensity Lower Back: Pain Intensity: 4 Transfer of Care Handoff Completed per policy Notes Mental Status: alert / awake / arousable and participated in evaluation Patient Amnestic to Procedure: Yes Nausea / Vomiting: adequately controlled Pain: adequately controlled Airway Patency, RR, SpO2: stable & adequate BP & HR: stable & adequate Hydration State: stable & adequate Anesthetic Complications: no major complications apparent and Pt Satisfied with anesthetic care
[2025-08-11] MEDS ORDERED: ALUMINUM/MAGNESIUM SUSP 30 ML UDC PO PRN (19:15)
[2025-08-11] MEDS ORDERED: SOD PHOSPHATE/SOD BIPHOSPHATE ENEMA 132 ML BTL PR PRN (19:15)
[2025-08-11] MEDS ORDERED: DO NOT ADMINISTER PNEUMOCOCCAL VACCINE PRN (19:15)
[2025-08-11] MEDS ORDERED: MAGNESIUM HYDROXIDE SUSP 30 ML UDC PO PRN (19:15)
[2025-08-11] MEDS ORDERED: ACETAMINOPHEN 1,000 MG/100 ML VIAL IV PRN (19:15)
[2025-08-11] MEDS ORDERED: NITROGLYCERIN SL 0.4 MG/TAB TAB SL PRN (19:15)
[2025-08-11] MEDS ORDERED: PROMETHAZINE 12.5 MG/50.5 ML BAG IV PRN (19:15)
[2025-08-11] MEDS ORDERED: DO NOT ADMINISTER FLU VACCINE PRN (19:15)
[2025-08-11] MEDS ORDERED: NALOXONE HCL 0.4 MG/1 ML VIAL/CARP IV PRN (19:15)
[2025-08-11] MEDS ORDERED: PHARMACY GLYCEMIC MGMT CONSULT PRN (19:15)
[2025-08-11] MEDS ORDERED: diphenhydrAMINE Capsule 25 MG CAP PO PRN (19:15)
[2025-08-11] MEDS ORDERED: ONDANSETRON 4 MG OD TAB PO PRN (19:15)
[2025-08-11] MEDS ORDERED: FAMOTIDINE 20 MG TAB PO PRN (19:15)
[2025-08-11] MEDS ORDERED: METOCLOPRAMIDE HCL INJ 5 MG/ML 2 ML VIAL IV PRN (19:15)
[2025-08-11] MEDS: LACTATED RINGER'S 1,000 ML IV SCH (19:43)
[2025-08-11] MEDS: KETOROLAC 30 MG/ML VIAL IV SCH (19:44)
[2025-08-11] MEDS: DOCUSATE SODIUM/SENNA 50/8.6MG TAB PO SCH (20:18)
[2025-08-11] MEDS ORDERED: DEXTROSE 50% 50 ML SYRINGE IV PRN (20:45)
[2025-08-11] MEDS ORDERED: GLUCOSE 40% GEL 15 GM TUBE PO PRN (20:45)
[2025-08-11] MEDS ORDERED: GLUCAGON FOR INJ 1 MG VIAL SQ PRN (20:45)
[2025-08-11] MEDS ORDERED: CARBOHYDRATES FOR HYPOGLYCEMIA PO PRN (20:45)
[2025-08-11] MEDS ORDERED: GLUCOSE 10 TAB/TUBE PO PRN (20:45)
--- NOTE | 2025-08-11 21:49 | Consultation ---
Date of Consultation August 11, 2025 Assessment & Plan (1) Post-operative state: 59-year-old male with past medical history significant for type 2 diabetes, history of HHS, history of DKA, diabetic mononeuropathy, hyperlipidemia, sleep apnea, CAD status post stent, hypertension, obesity, essential tremor, status post back surgery. Has some soreness at surgical site. Afebrile. Denies headache. Vision is okay. No nausea. No cough. No runny nose or sore throat. Denies any chest pain. No shortness of breath. No abdominal pain. Micturating okay. Hemodynamics are okay. Postoperative state status post back surgery Management as per orthospine Diabetes Sliding scale Glycemic pharmacy consulted Close monitor Sleep apnea CPAP nightly History of CAD s/p stent On aspirin, statin, Imdur, metoprolol tartrate Hypertension On metoprolol tartrate, Imdur and lisinopril Will monitor Hyperlipidemia On statin DVT prophylaxis and disposition As per Ortho History of Present Illness Reason for Consultation: Status post back surgery Attending Physician: Bertin Briones MD History of Present Illness 59-year-old male with past medical history significant for type 2 diabetes, history of HHS, history of DKA, diabetic mononeuropathy, hyperlipidemia, sleep apnea, CAD status post stent, hypertension, obesity, essential tremor, status post back surgery. Has some soreness at surgical site. Afebrile. Denies headache. Vision is okay. No nausea. No cough. No runny nose or sore throat. Denies any chest pain. No shortness of breath. No abdominal pain. Micturating okay. Hemodynamics are okay. Past medical history. As mentioned above. Past surgical history. Bilateral carpal tunnel surgery. Colonoscopy. Left heart catheterization. Right knee scope. Social history. . Snuff tobacco. Alcohol occasional use. No drug use. Family history. Father had CAD s/p stenting. Hypertension. Paternal grandfather had heart disease. Allergies Allergy/AdvReac Type Severity Reaction Status Date / Time bee pollen Allergy Severe Throat Verified 08/11/25 08:21 swelling (required ED visit), carries Epi pen Home Medications Medication Instructions Recorded Confirmed Type metformin 500 mg tablet 1,000 mg PO BID 05/11/19 08/11/25 History glipizide 10 mg tablet 10 mg PO QAM 09/30/21 08/11/25 History atorvastatin 80 mg tablet 80 mg PO QAM 05/07/23 08/11/25 History isosorbide mononitrate 60 mg 60 mg PO QAM 05/07/23 08/11/25 History tablet,extended release 24 hr lisinopril 5 mg tablet 5 mg PO QAM 05/07/23 08/11/25 History metoprolol tartrate 25 mg tablet 50 mg PO QAM 05/07/23 08/11/25 History nitroglycerin 0.4 mg sublingual 0 mg sublingual UD PRN chest pain 05/07/23 08/11/25 History tablet tirzepatide 5 mg/0.5 mL 10 mg subcut WK 08/01/24 08/11/25 History subcutaneous pen injector (Mounporfirioro) cholecalciferol (vitamin D3) 50 50 mcg PO QAM 04/04/25 08/11/25 History mcg (2,000 unit) capsule (Vitamin D3) docusate sodium 100 mg capsule 100 mg PO QAM 04/04/25 08/11/25 History (Colace) epinephrine 0.3 mg/0.3 mL 0.3 mg IM UD PRN bee sting allergy 04/04/25 08/11/25 H istory injection, auto-injector tramadol 50 mg tablet 50 mg PO Q8H PRN pain #30 tabs 07/05/25 08/11/25 Rx aspirin 81 mg tablet,delayed 81 mg PO DAILY 08/01/25 08/11/25 History release insulin glargine U-300 conc 300 22 - 27 unit subcut TID PRN 08/11/25 08/11/25 History unit/mL (1.5 mL) subcutaneous pen Hyperglycemia (Toujeo SoloStar U-300 Insulin) Patient History Medical History CAD (coronary artery disease) 2020- PCI RUTH Mid LAD 11/2024- no stents, medical management recommended Cervical disc herniation Cervical facet syndrome Cervical radiculopathy Cervical spine arthritis Diabetes History of COVID-19 (2020) HTN (hypertension), benign Hx of diabetes with ketoacidosis (05/2025) [facility] 05/2025 DM meds adjusted, no issues since Low back pain radiating to left lower extremity Lumbar degenerative disc disease Lumbar herniated disc L5-S1 Neuroforaminal stenosis of lumbar spine Right knee DJD Sleep apnea CPAP Spondylolisthesis, grade 1 Thyroid nodule Monitored by pcp, stable Surgical History History of bilateral carpal tunnel release History of cardiac cath (11/2024) 2020- PCI RUTH Mid LAD- [place] 11/2024- no stents, medical management recommended- [place] History of colonoscopy Status post total left knee replacement (04/2025) Social History Smoking Status: Never smoker Tobacco Type: Smokeless Tobacco (Dip or Chew) Second Hand Exposure: No; Do You Dip or Chew Tobacco: No; Tobacco Cessation Education Requested by Patient: No Hx Alcohol Use: Yes Hx Substance Use: No Preferred Language: [place] Communication Ability: Effective Communication Ability Comment: pt is at work per , listed hippa contact, offers to do phone call. Visual Impairment: No Limitations Hearing Ability: Normal Repairer Recreational Vehicle Required: No Beliefs That Will Affect Care: None marital status: Current Living Situation: Spouse current occupational status: employed current occupation: [employer] Other Information That Helps Us Care for You: No Feels Safe at Home: Yes Safety Concerns: Feels Safe At This Time Assistive Devices: Cane, CPAP, Glasses and Hearing Aid - Bilateral Review of Systems Review of Systems: All systems reviewed & are unremarkable except as noted in HPI & below Physical Exam Physical Exam: General- Not in distress Head- atraumatic Eyes- EOMI ENT- oropharynx clear Neck- supple, no JVD. Lungs- clear to auscultation no wheezing or crackles Heart- regular rhythm; no murmur, no gallop. Abdomen- normal bowel sounds, soft, nontender, no distension Extremities- no pretibial edema, no erythema seen Neuro- alert, oriented EOMI; no facial palsy; no dysarthria; moves extremities Musculoskeletal s/p back surgery. Dressing intact Results & Data Vital Signs (Past 12 Hours) Vital Signs Temp Pulse Pulse Resp BP BP Pulse Ox 08/11/25 20:00 36.8 C 88 19 158/82 H 97 08/11/25 19:15 36.3 C L 90 20 167/83 H 99 08/11/25 18:25 36.7 C 89 16 180/89 H 98 08/11/25 18:10 79 12 162/95 H 100 08/11/25 17:55 80 14 163/90 H 100 08/11/25 17:45 83 12 166/96 H 100 08/11/25 17:35 36.3 C L 78 12 163/90 H 100 08/11/25 17:25 80 12 164/89 H 99 08/11/25 17:15 78 17 190/98 H 100 08/11/25 17:04 80 17 190/98 H 100 08/11/25 16:55 81 17 100 08/11/25 16:45 82 14 185/90 H 100 08/11/25 16:35 81 15 182/97 H 100 08/11/25 16:25 82 19 170/98 H 100 08/11/25 16:15 36.0 C L 84 19 159/89 H 98 O2 Del Method O2 Flow Rate 08/11/25 20:00 Nasal Cannula 2 08/11/25 19:15 Nasal Cannula 2 08/11/25 18:25 Nasal Cannula 2 08/11/25 18:10 Nasal Cannula 2 08/11/25 17:55 Nasal Cannula 2 08/11/25 17:45 Nasal Cannula 2 08/11/25 17:35 Nasal Cannula 2 08/11/25 17:25 Nasal Cannula 2 08/11/25 17:15 Nasal Cannula 4 08/11/25 17:04 Nasal Cannula 4 08/11/25 16:55 Nasal Cannula 4 08/11/25 16:45 Nasal Cannula 4 08/11/25 16:35 Oxymask 5 08/11/25 16:25 Oxymask 5 08/11/25 16:15 Oxymask 5 Diagnostic Findings Laboratory Results POC Glucose 333 mg/dl (70-99) H* 08/11/25 21:31
[2025-08-11] MEDS: INSULIN ASPART PER UNIT CHARGE SC SCH (21:52)
[2025-08-12] MEDS: INSULIN ASPART PER UNIT CHARGE SC SCH (01:19)
[2025-08-12] MEDS: POLYETHYLENE (MIRALAX) 17 GM PACK PO SCH (05:05)
[2025-08-12] MEDS: ACETAMINOPHEN 500 MG TAB PO PRN (05:08)
[2025-08-12] MEDS ORDERED: ceFAZolin 3000MG 3,000 MG/72.5 ML BAG IV SCH (06:00)
[2025-08-12 07:25] LABS: Hematocrit (blood only) 33.6 % (42.0-52.0); Hemoglobin 11.7 g/dL (14.0-18.0); Immature Granulocytes # (auto) 0.02 K/uL (0.01-0.20); Immature Granulocytes % (auto) 0.2 %; Mean Corpuscular Hemoglobin 29.8 pg (25.0-34.0); Mean Corpuscular Volume 85.5 fL (80.0-100.0); Platelet Count 253 K/uL (130-400); RDW Standard Deviation 44.8 fL (36.4-46.3); Red Blood Count 3.93 M/uL (4.70-6.10); White Blood Count 10.47 K/ul (4.8-10.8)
--- NOTE | 2025-08-12 07:42 | Fluoroscopy Report ---
FL lumbar spine 2-3V CLINICAL HISTORY: L5-S1 FUSION COMPARISON STUDY: Lumbar spine CT 07/29/2025 FLUOROSCOPY TIME: 50.5 seconds FLUOROSCOPY IMAGES: 8 EXPOSURE DOSE: 38 mGy FINDINGS: Discectomy with posterior interbody robb and screw fusion at L5-S1. No unexpected opaque for eign bodies. Eliz project over the left SI joint. IMPRESSION: Fluoroscopic assistance as above. ACT 112: Negative or not required by law. Electronically signed by: Karl Stone M.D. 08/12/2025 7:41 AM
[2025-08-12 08:04] LABS: Anion Gap 9.0 (3-11); Blood Urea Nitrogen 17.0 mg/dl (6-23); Calcium 9.1 mg/dl (8.6-10.3); Carbon Dioxide 27.0 mmol/L (21-32); Chloride 99.0 mmol/L (98-107); Creatinine Clr Calc Pharmacy 159.4 ml/min; Glucose 227.0 mg/dl (70-99(Fasting)); Potassium 4.3 mmol/L (3.5-5.1); Sodium 135.0 mmol/L (136-145)
--- NOTE | 2025-08-12 08:10 | Pharmacy Report ---
Pharmacy Glycemic Short Note 2 - Date of Service August 12, 2025 - Glycemic Short BSG Results (Last 24 hours): 08/11/25 08/11/25 08/11/25 08:19 08:22 08:26 POC Glucose 304 H* 260 H 249 H 08/11/25 08/11/25 08/11/25 16:18 21:30 21:31 POC Glucose 185 H 300 H 333 H* 08/12/25 08/12/25 08/12/25 00:56 04:44 07:43 POC Glucose 278 H 245 H 204 H OUTPATIENT ANTIDIABETIC REGIMEN: * Metformin ER 1g PO BID * Mounjaro 10mg SQ Weekly * Glipizide XL 10mg daily * A1c 7.6% 08/01/25 ASSESSMENT: * 59 yo M, s/p back surgery. Type 2 DM. Blood sugars high last night, likely d/t receiving steroids pre-op, but unknown if patient did or not? * Patient received 23 units of NovoLog over the last 12 hours. * Continue with NovoLog, tighten parameters, and start basal insulin. PLAN FOR INPATIENT GLYCEMIC CONTROL: * Hold outpatient diabetes medications * Basal insulin * Lantus 25 units SQ daily * Bolus insulin * NovoLog per scale ACHS or Q6hrs while NPO * Goal Range: Low 110 mg/dL - High 140 mg/dL * Correction Factor: 15 mg/dL/unit * Nutritional / Prandial insulin per carb ratio of 1 unit per 6 grams CHO consumed
[2025-08-12] MEDS: CHOLECALCIFEROL 25 MCG (1000 UNITS) TAB PO SCH (08:44)
[2025-08-12] MEDS: ASPIRIN 81 MG ECTAB PO SCH (08:44)
[2025-08-12] MEDS: ATORVASTATIN 40 MG TAB PO SCH (08:45)
[2025-08-12] MEDS: METOPROLOL TARTRATE 50 MG TAB PO SCH (08:45)
[2025-08-12] MEDS: ISOSORBIDE MONO EXTENDED REL 60 MG TABCR PO SCH (08:45)
[2025-08-12] MEDS: LANTUS PER UNIT CHARGE SC ONE (08:46)
[2025-08-12] MEDS: DOCUSATE SODIUM 100 MG CAP PO SCH (08:47)
[2025-08-12] MEDS ORDERED: glipiZIDE 5 MG TAB PO SCH (09:00)
--- NOTE | 2025-08-12 10:32 | Ultrasound Report ---
LEFT LOWER EXTREMITY VENOUS DOPPLER HISTORY: Acute pain and swelling of the lower legs R/O DVT COMPARISON STUDY: None. FINDINGS: There is normal compressibility, flow, and augmentation within the left lower extremity augie p venous system. IMPRESSION: No DVT within the left lower extremity. ACT 112: Negative or not required by law. Electronically signed by: Karl Stone M.D. 08/12/2025 10:31 AM
--- NOTE | 2025-08-12 10:47 | XRay Report ---
XR lumbar spine 2-3V HISTORY: 59 years-old Male post-op spine surgery COMPARISON: Lumbar spine CT 08/11/2025 TECHNIQUE: 2 views of the lumbar spine FINDINGS: Interbody robb and screw fusion with discectomy at L5-S1 with posterior skin cornelio. Chronic L5 pars defects with grade 1 anterolisthesis redemonstrated. Mild multilevel intervertebral disc space narrow ing and spondylotic spurring again noted. IMPRESSION: Status post discectomy with posterior interbody robb and screw fusion at L5-S1. ACT 112: Negative or not required by law. The above report was generated using voice recognition software. It may contain grammatical, syntax o r spelling errors. Electronically signed by: Karl Stone M.D. 08/12/2025 10:45 AM
--- NOTE | 2025-08-12 10:53 | Orthopedic Progress Note ---
Date of Service August 12, 2025 Assessment & Plan (1) Status post total left knee replacement: * Continue Current Treatment * Disposition: home * Daily treatment: Physical Therapy/ Occupational Therapy per protocol * Weight bearing status: WBAT * Continue to monitor for ABLA * Plan for dressing change tomorrow prior to discharge * Pain control * Office/hospital f/u 2 weeks for progress check and staple/suture removal * Plan for discharge tomorrow pending PT/OT clearance * * Patient seen and examined, has some left leg radicular symptoms which just began this morning, will mobilize with physical therapy. Subjective . Active Problems: S/p L5-S1 Anterior Lumbar Interbody Fusion with Cage Posterior Fusion Percutaneous Instrumentation POD 1 59 y/o male s/p L5-S1 Anterior Lumbar Interbody Fusion with Cage Posterior Fusion Percutaneous Instrumentation. Doing well overall, pain managed and improved function. Denies fever/chills, chest pain/SOB, nausea/vomiting. Otherwise no complaints. Review of Systems All systems reviewed & are unremarkable except as noted in HPI & below. Physical Exam . * General: Alert and oriented, no acute distress * Constitutional: well-developed, well-nourished. * Respiratory: Normal respiratory effort, no distress * Gastrointestinal: No tenderness to palpation, no rigidity or guarding. * Skin: No rash or lesion. * Neurologic: Grossly normal * Musculoskeletal: Anterior and posterior surgical dressings CDI. Lumbar spine region without obvious deformity or overlying skin changes. Minimal tenderness of surgical region, otherwise no tenderness b/l buttock or LE. Lumbar flexion/extension and rotation ROM with minimal pain. AROM b/l hip flexion, knee flexion/extension, ankle flexion/extension intact. Sensation intact plantar/dorsal foot. Brisk capillary refill. Results & Data Results & Data Laboratory Results . Diagnostic Findings . PG Care Time/CCT Total # of Minutes Spent Total Time Spent with Patient: Total time spent is greater than 50% in coordination of care (as documented) at patient's floor/unit and/or counseling patient: Coding Level of Care Code 61612 Post Operative Follow-Up Diagnoses Status post total left knee replacement Z96.652
--- NOTE | 2025-08-12 12:41 | Hospitalist Progress Note ---
Date of Service August 12, 2025 Assessment & Plan (1) Post-operative state: Plan: 59-year-old male with past medical history significant for type 2 diabetes, history of HHS, history of DKA, diabetic mononeuropathy, hyperlipidemia, sleep apnea, CAD status post stent, hypertension, obesity, essential tremor, status post back surgery. Has some soreness at surgical site. Afebrile. Denies headache. Vision is okay. No nausea. No cough. No runny nose or sore throat. Denies any chest pain. No shortness of breath. No abdominal pain. Micturating okay. Hemodynamics are okay. Postoperative state Status post back surgery Management as per orthospine Denies any significant pain at the back and does not have any radiculopathic pain Minimal pain in the left kneeultrasound did not show any evidence of DVT in the left lower extremity Diabetes Sliding scale Glycemic pharmacy consulted Close monitorblood sugar remains minimally elevated at 162 Sleep apnea CPAP nightly History of CAD s/p stent On aspirin, statin, Imdur, metoprolol tartrate Denies any cardiac symptoms Hypertension On metoprolol tartrate, Imdur and lisinopril Blood pressure remains on the upper side at 171/90will not any add any extra medications for now Hyperlipidemia On statin DVT prophylaxis and disposition As per Ortho Admission and Anticipated Discharge Date Admission Date: August 11, 2025 Subjective 08/12/2025 The patient was seen and examined in medical floor He is a status post L5-S1 anterior lumbar interbody fusion with cage posterior fusion percutaneous instrumentation with spinal cord monitoring on 08/11/2025 Has been feeling much better with minimal pain and does not have any radiculopathic pain Denies any other significant symptoms except some pain in the Left lower extremity Review of Systems Review of Systems: All systems reviewed and are unremarkable except as noted below Physical Exam Physical Exam: Lying in bed without any acute distress Constitutional: well developed, well nourished, + ill appearing and + obese Eyes: PERRL, conjunctivae normal, anicteric sclerae ENMT: external ear and nose normal, oropharynx normal Neck: trachea midline, no thyromegaly Respiratory: no respiratory distress Auscultation: lungs clear to auscultation bilaterally Cardiovascular: Rate/Rhythm: regular rate and regular rhythm; not tachycardic Heart Sounds: normal S1 and normal S2; no murmur Gastrointestinal (Abdomen): Inspection/Auscultation: normal bowel sounds; abdomen not distended Percussion/Palpation: abdomen soft; abdomen nontender Musculoskeletal: No acute arthritis involving any of the joint, minimal pain left knee with movement Neurologic: normal touch/pain/proprioception and moves all extremities; no focal motor deficits Lymphatic: no cervical or axillary lymphadenopathy Results & Data Results & Data Vital Signs (Past 12 Hours) Vital Signs Temp Pulse Resp BP BP Pulse Ox O2 Del Method 08/12/25 09:27 36.6 C 85 20 171/90 H 98 Room Air 08/12/25 05:00 36.5 C 89 20 156/79 H 96 Nasal Cannula 08/12/25 01:16 36.6 C 95 H 20 160/80 H 97 Nasal Cannula O2 Flow Rate 08/12/25 09:27 08/12/25 05:00 2 08/12/25 01:16 2 Laboratory Results Short CBC 08/12/25 Range/Units 06:39 WBC 10.47 (4.8-10.8) K/ul Hgb 11.7 L (14.0-18.0) g/dL Hct 33.6 L (42.0-52.0) % Plt Count 253 (130-400) K/uL BMP 08/12/25 06:39 Sodium 135 L Potassium 4.3 Chloride 99 Carbon Dioxide 27 BUN 17 Creatinine 0.68 Glucose 227 H Calcium 9.1 Medications Administered Current Inpatient Medications Acetaminophen (Acetaminophen 500 Mg Tab) 1,000 mg PO Q8H PRN PRN Reason: MILD Pain (1,2,3) & Pre PT Stop: 09/10/25 19:14 Last Admin: 08/12/25 05:08 Dose: 1,000 mg Aspirin (Aspirin 81 Mg Ectab) 81 mg PO DAILY [place] Stop: 09/11/25 08:59 Last Admin: 08/12/25 08:44 Dose: 81 mg Atorvastatin Calcium (Atorvastatin 40 Mg Tab) 80 mg PO QAM [place] Stop: 09/11/25 08:59 Last Admin: 08/12/25 08:45 Dose: 80 mg Bisacodyl (Bisacodyl 10 Mg Supp) 10 mg [place] DAILY PRN PRN Reason: Constipation Stop: 09/10/25 19:14 Dextrose (Dextrose 50% 50 Ml Syringe) 25 - 50 ml IV UD PRN; Protocol PRN Reason: Hypoglycemia Protocol Stop: 09/10/25 20:44 Diphenhydramine HCl (Diphenhydramine Capsule 25 Mg Cap) 25 mg PO Q6H PRN PRN Reason: Allergic Rhinitis/Insomnia Stop: 09/10/25 19:14 Docusate Sodium (Docusate Sodium 100 Mg Cap) 100 mg PO QAM [facility] Stop: 09/11/25 08:59 Last Admin: 08/12/25 08:47 Dose: 100 mg Epinephrine HCl (Epinephrine Adult Auto-Inject 0.3 Mg Syr) 0.3 mg IM UD PRN PRN Reason: bee sting allergy Stop: 09/10/25 19:14 Famotidine (Famotidine 20 Mg Tab) 20 mg PO Q12H PRN PRN Reason: Dyspepsia Stop: 09/10/25 19:14 Glucagon (Glucagon For Inj 1 Mg Vial) 1 mg SQ UD PRN; Protocol PRN Reason: Hypoglycemia Protocol Stop: 09/10/25 20:44 Glucose (Glucose 40% Gel 15 Gm Tube) 15 - 30 gm PO UD PRN; Protocol PRN Reason: Hypoglycemia Protocol Stop: 09/10/25 20:44 Glucose (Glucose 10 Tab/Tube) 4 - 8 tab PO UD PRN; Protocol PRN Reason: Hypoglycemia Protocol Stop: 09/10/25 20:44 Hydromorphone HCl (Hydromorphone Inj 0.5 Mg/0.5 Ml Syr) 0.25 mg IV Q5M PRN PRN Reason: Pain Stop: 08/25/25 17:13 Last Admin: 08/11/25 17:26 Dose: 0.25 mg Hydromorphone HCl (Hydromorphone Inj 0.5 Mg/0.5 Ml Syr) 0.5 mg IV Q3H PRN PRN Reason: MODERATE Pain(4,5,6)/Pre PT Stop: 08/25/25 19:14 Hydromorphone HCl (Hydromorphone Inj 1 Mg/Ml Syringe) 1 mg IV Q3H PRN PRN Reason: SEVERE Pain (7,8,9,10) Stop: 08/25/25 19:14 Hydroxyzine HCl (Hydroxyzine Hcl 25 Mg Tab) 25 mg PO Q8H PRN PRN Reason: Anxiety Stop: 09/10/25 19:14 Acetaminophen (Ofirmev) 1,000 mg in 100 mls @ 400 mls/hr IV Q8H PRN PRN Reason: MILD Pain (1,2,3) & Pre PT Stop: 08/12/25 19:15 Influenza Virus Vaccine Quadrival (Do Not Administer Flu Vaccine) 1 each N/A PRN PRN PRN Reason: Notification Stop: 09/10/25 19:14 Insulin Aspart (Insulin Aspart Per Unit Charge) 0 units SC [facility] Stop: 09/10/25 20:59 Last Admin: 08/12/25 12:28 Dose: 10 units Insulin Glargine (Lantus Per Unit Charge) 0 units SC [facility]; Protocol Stop: 09/11/25 20:59 Isosorbide Mononitrate (Isosorbide [place] Extended Rel 60 Mg Tabcr) 60 mg PO [facility] Stop: 09/11/25 08:59 Last Admin: 08/12/25 08:45 Dose: 60 mg Ketorolac Tromethamine (Ketorolac 30 Mg/Ml Vial) 30 mg IV Q6H [facility] Stop: 08/12/25 13:31 Last Admin: 08/12/25 08:44 Dose: 30 mg Lisinopril (Lisinopril 5 Mg Tab) [facility] Stop: 09/11/25 08:59 Last Admin: 08/12/25 08:45 Dose: 5 mg Metoprolol Tartrate (Metoprolol Tartrate 50 Mg Tab) 50 mg [facility] Stop: 09/11/25 08:59 Last Admin: 08/12/25 08:45 Dose: 50 mg Miscellaneous (Carbohydrates For Hypoglycemia ) 15 - 30 gm PO UD PRN PRN Reason: Hypoglycemia Treatment Stop: 09/10/25 20:44 Miscellaneous Information (Pharmacy Glycemic Mgmt Consult) 1 each N/A UD PRN PRN Reason: Consult Stop: 09/10/25 19:14 Naloxone HCl (Naloxone Hcl 0.4 Mg/1 Ml Vial/Carp) 0.1 mg IV Q5M PRN PRN Reason: Oversedation/Resp depression Stop: 09/10/25 19:14 Ondansetron HCl (Ondansetron Inj 2 Mg/Ml 2 Ml Vial) 4 mg IV Q6H PRN PRN Reason: Nausea &/or Vomiting Stop: 09/10/25 19:14 Ondansetron HCl (Ondansetron 4 Mg Od Tab) 4 mg PO Q6H PRN PRN Reason: Nausea Stop: 09/10/25 19:14 Oxycodone HCl (Oxycodone Hcl Ir 5 Mg Tab (Immediate Release)) 5 - 10 mg PO Q4H PRN PRN Reason: MOD/SEV Pain & Pre PT Stop: 08/25/25 19:14 Pneumococcal Polyvalent Vaccine (Do Not Administer Pneumococcal Vaccine) 1 each N/A PRN PRN PRN Reason: Notification Stop: 09/10/25 19:14 Polyethylene Glycol (Polyethylene (Miralax) 17 Gm Pack) 17 gm PO Q6 [facility] Stop: 09/11/25 05:59 Last Admin: 08/12/25 12:28 Dose: 17 gm Senna/Docusate Sodium (Docusate Sodium/Senna 50/8.6mg Tab) 2 tab PO HS [facility] Stop: 09/10/25 20:59 Last Admin: 08/11/25 20:18 Dose: 2 tab Tizanidine HCl (Tizanidine Hcl 4 Mg Tablet) 4 mg PO Q8H PRN PRN Reason: Muscle Spasm Stop: 09/10/25 19:14 Vitamin D (Cholecalciferol 25 Mcg (1000 Units) Tab) 50 mcg PO QAM [facility] Stop: 09/11/25 08:59 Last Admin: 08/12/25 08:44 Dose: 50 mcg
[2025-08-12] MEDS: HYDROmorphone INJ 0.5 MG/0.5 ML SYR IV PRN (20:58)
[2025-08-12] MEDS: LANTUS PER UNIT CHARGE SC SCH (21:04)
--- NOTE | 2025-08-13 01:13 | Anesthesiology Progress Note ---
Date of Service August 13, 2025 Anesthesia Post Procedure Vital Signs Vital Signs: Temp Pulse Resp BP BP Pulse Ox O2 Del Method 08/12/25 22:30 36.8 C 93 H 20 145/73 H 95 Room Air 08/12/25 14:39 97 08/12/25 13:41 36.7 C 79 18 118/67 97 Room Air 08/12/25 09:27 36.6 C 85 20 171/90 H 98 Room Air 08/12/25 05:00 36.5 C 89 20 156/79 H 96 Nasal Cannula 08/12/25 01:16 36.6 C 95 H 20 160/80 H 97 Nasal Cannula O2 Flow Rate 08/12/25 22:30 08/12/25 14:39 08/12/25 13:41 08/12/25 09:27 08/12/25 05:00 2 08/12/25 01:16 2 Pain Intensity Lower Back: Pain Intensity: 3 Left Calf: Pain Intensity: 4 Transfer of Care Handoff Completed per policy Notes Mental Status: alert / awake / arousable and participated in evaluation Patient Amnestic to Procedure: Yes Nausea / Vomiting: adequately controlled Pain: adequately controlled Airway Patency, RR, SpO2: stable & adequate BP & HR: stable & adequate Hydration State: stable & adequate Anesthetic Complications: no major complications apparent
[2025-08-13] MEDS: HYDROmorphone INJ 1 MG/ML SYRINGE IV PRN (07:44)
[2025-08-13] MEDS: LANTUS PER UNIT CHARGE SC SCH (08:30)
--- NOTE | 2025-08-13 09:20 | Pharmacy Report ---
Pharmacy Glycemic Short Note 2 - Date of Service August 13, 2025 - Glycemic Short BSG Results (Last 24 hours): 08/12/25 08/12/25 08/12/25 11:28 16:30 20:36 POC Glucose 162 H 99 146 H 08/13/25 07:12 POC Glucose 251 H OUTPATIENT ANTIDIABETIC REGIMEN: * Metformin ER 1g PO BID * Mounjaro 10mg SQ Weekly * Glipizide XL 10mg daily * A1c 7.6% 08/01/25 ASSESSMENT: 08/13 * POD2 * Patient received 59 units of insulin yesterday, 25 units basal. Blood sugars at goal yesterday, but did rise overnight to 251mg/dl this AM for fasting, pt reports no eating overnight. * Increase basal by 20% today. No other changes at this time. 08/12 * 59 yo M, s/p back surgery. Type 2 DM. Blood sugars high last night, likely d/t receiving steroids pre-op, but unknown if patient did or not? * Patient received 23 units of NovoLog over the last 12 hours. * Continue with NovoLog, tighten parameters, and start basal insulin. PLAN FOR INPATIENT GLYCEMIC CONTROL: * Hold outpatient diabetes medications * Basal insulin * Lantus 30 units SQ daily * Bolus insulin * NovoLog per scale ACHS or Q6hrs while NPO * Goal Range: Low 110 mg/dL - High 140 mg/dL * Correction Factor: 15 mg/dL/unit * Nutritional / Prandial insulin per carb ratio of 1 unit per 6 grams CHO consumed
--- NOTE | 2025-08-13 10:40 | Orthopedic Progress Note ---
Date of Service August 13, 2025 Assessment & Plan (1) Lumbar degenerative disc disease: Subjective Active Problems: S/p L5-S1 Anterior Lumbar Interbody Fusion with Cage Posterior Fusion Percutaneous Instrumentation POD 2 59 y/o male s/p L5-S1 Anterior Lumbar Interbody Fusion with Cage Posterior Fusion Percutaneous Instrumentation. Doing well overall, pain managed and improved function. Denies fever/chills, chest pain/SOB, nausea/vomiting. Notes LLE thigh and calf spasm with activity. No back pain. Review of Systems All systems reviewed & are unremarkable except as noted in HPI & below. Physical Exam * Musculoskeletal: Anterior and posterior surgical dressings CDI. Lumbar spine region without obvious deformity or overlying skin changes. Minimal tenderness of surgical region, otherwise no tenderness b/l buttock or LE. Lumbar flexion/extension and rotation ROM with minimal pain. AROM b/l hip flexion, knee flexion/extension, ankle flexion/extension intact. Sensation intact plantar/dorsal foot. Brisk capillary refill. Results & Data Results & Data Laboratory Results . Diagnostic Findings . PG Care Time/CCT Total # of Minutes Spent Total Time Spent with Patient: Total time spent is greater than 50% in coordination of care (as documented) at patient's floor/unit and/or counseling patient: Coding Level of Care Code 97910 Post Operative Follow-Up Diagnoses Degeneration of intervertebral disc of lumbar region with discogenic back pain M51.360 Disc-related pain type: discogenic back pain only (1) Lumbar degenerative disc disease Disc-related pain type: discogenic back pain only Qualified Code(s): M51.360 - Other intervertebral disc degeneration, lumbar region with discogenic back pain only
--- NOTE | 2025-08-13 13:48 | Hospitalist Progress Note ---
Date of Service August 13, 2025 Assessment & Plan (1) Post-operative state: Plan: 59-year-old male with past medical history significant for type 2 diabetes, history of HHS, history of DKA, diabetic mononeuropathy, hyperlipidemia, sleep apnea, CAD status post stent, hypertension, obesity, essential tremor, status post back surgery. Has some soreness at surgical site. Afebrile. Denies headache. Vision is okay. No nausea. No cough. No runny nose or sore throat. Denies any chest pain. No shortness of breath. No abdominal pain. Micturating okay. Hemodynamics are okay. Postoperative state Status post back surgery Management as per orthospine Denies any significant pain at the back and does not have any radiculopathic pain Minimal pain in the left kneeultrasound did not show any evidence of DVT in the left lower extremity Still complains of spasm involving the left lower extremity Was advised to continue with antispasmodic medication as needed Diabetes Sliding scale Glycemic pharmacy consulted Close monitorblood sugar remains minimally elevated at 162 Blood sugar remains stable Sleep apnea CPAP nightly History of CAD s/p stent On aspirin, statin, Imdur, metoprolol tartrate Denies any cardiac symptoms No issues with palpitation and chest pain Hypertension On metoprolol tartrate, Imdur and lisinopril Blood pressure remains on the upper side at 171/90will not any add any extra medications for now Hyperlipidemia On statin DVT prophylaxis and disposition As per Ortho Admission and Anticipated Discharge Date Admission Date: August 11, 2025 Subjective 08/12/2025 The patient was seen and examined in medical floor He is a status post L5-S1 anterior lumbar interbody fusion with cage posterior fusion percutaneous instrumentation with spinal cord monitoring on 08/11/2025 Has been feeling much better with minimal pain and does not have any radiculopathic pain Denies any other significant symptoms except some pain in the Left lower extremity 08/13/2025 Patient was seen and examined in medical floor Still complains of pain in the left lower extremity with spasm Has been on antispasmodic and does not take it as needed Denies any other symptoms Review of Systems Review of Systems: All systems reviewed and are unremarkable except as noted below Physical Exam Physical Exam: Lying in bed without any acute distress Constitutional: well developed, well nourished, + ill appearing and + obese Eyes: PERRL, conjunctivae normal, anicteric sclerae ENMT: external ear and nose normal, oropharynx normal Neck: trachea midline, no thyromegaly Respiratory: no respiratory distress Auscultation: lungs clear to auscultation bilaterally Cardiovascular: Rate/Rhythm: regular rate and regular rhythm; not tachycardic Heart Sounds: normal S1 and normal S2; no murmur Gastrointestinal (Abdomen): Inspection/Auscultation: normal bowel sounds; abdomen not distended Percussion/Palpation: abdomen soft; abdomen nontender Musculoskeletal: No acute arthritis involving any of the joint Neurologic: normal touch/pain/proprioception and moves all extremities; no focal motor deficits Lymphatic: no cervical or axillary lymphadenopathy Results & Data Results & Data Vital Signs (Past 12 Hours) Vital Signs Temp Pulse Resp BP Pulse Ox O2 Del Method 08/13/25 07:39 36.7 C 84 18 149/79 H 94 Room Air Medications Administered Current Inpatient Medications Acetaminophen (Acetaminophen 500 Mg Tab) 1,000 mg PO Q8H PRN PRN Reason: MILD Pain (1,2,3) & Pre PT Stop: 09/10/25 19:14 Last Admin: 08/12/25 05:08 Dose: 1,000 mg Aspirin (Aspirin 81 Mg Ectab) 81 mg PO DAILY [facility] Stop: 09/11/25 08:59 Last Admin: 08/13/25 08:29 Dose: 81 mg Atorvastatin Calcium (Atorvastatin 40 Mg Tab) 80 mg PO QAM [facility] Stop: 09/11/25 08:59 Last Admin: 08/13/25 08:28 Dose: 80 mg Bisacodyl (Bisacodyl 10 Mg Supp) 10 mg WA DAILY PRN PRN Reason: Constipation Stop: 09/10/25 19:14 Dextrose (Dextrose 50% 50 Ml Syringe) 25 - 50 ml IV UD PRN; Protocol PRN Reason: Hypoglycemia Protocol Stop: 09/10/25 20:44 Diphenhydramine HCl (Diphenhydramine Capsule 25 Mg Cap) 25 mg PO Q6H PRN PRN Reason: Allergic Rhinitis/Insomnia Stop: 09/10/25 19:14 Docusate Sodium (Docusate Sodium 100 Mg Cap) 100 mg PO QAM [facility] Stop: 09/11/25 08:59 Last Admin: 08/13/25 08:28 Dose: 100 mg Epinephrine HCl (Epinephrine Adult Auto-Inject 0.3 Mg Syr) 0.3 mg IM UD PRN PRN Reason: bee sting allergy Stop: 09/10/25 19:14 Famotidine (Famotidine 20 Mg Tab) 20 mg PO Q12H PRN PRN Reason: Dyspepsia Stop: 09/10/25 19:14 Gabapentin (Gabapentin 300 Mg Cap) 300 mg PO TID [facility] Stop: 09/12/25 13:59 Glucagon (Glucagon For Inj 1 Mg Vial) 1 mg SQ UD PRN; Protocol PRN Reason: Hypoglycemia Protocol Stop: 09/10/25 20:44 Glucose (Glucose 40% Gel 15 Gm Tube) 15 - 30 gm PO UD PRN; Protocol PRN Reason: Hypoglycemia Protocol Stop: 09/10/25 20:44 Glucose (Glucose 10 Tab/Tube) 4 - 8 tab PO UD PRN; Protocol PRN Reason: Hypoglycemia Protocol Stop: 09/10/25 20:44 Hydromorphone HCl (Hydromorphone Inj 0.5 Mg/0.5 Ml Syr) 0.25 mg IV Q5M PRN PRN Reason: Pain Stop: 08/25/25 17:13 Last Admin: 08/11/25 17:26 Dose: 0.25 mg Hydromorphone HCl (Hydromorphone Inj 0.5 Mg/0.5 Ml Syr) 0.5 mg IV Q3H PRN PRN Reason: MODERATE Pain(4,5,6)/Pre PT Stop: 08/25/25 19:14 Last Admin: 08/12/25 20:58 Dose: 0.5 mg Hydromorphone HCl (Hydromorphone Inj 1 Mg/Ml Syringe) 1 mg IV Q3H PRN PRN Reason: SEVERE Pain (7,8,9,10) Stop: 08/25/25 19:14 Last Admin: 08/13/25 07:44 Dose: 1 mg Hydroxyzine HCl (Hydroxyzine Hcl 25 Mg Tab) 25 mg PO Q8H PRN PRN Reason: Anxiety Stop: 09/10/25 19:14 Influenza Virus Vaccine Quadrival (Do Not Administer Flu Vaccine) 1 each N/A PRN PRN PRN Reason: Notification Stop: 09/10/25 19:14 Insulin Aspart (Insulin Aspart Per Unit Charge) 0 units SC [facility] Stop: 09/10/25 20:59 Last Admin: 12/07/25 13:27 Dose: 5 units Insulin Glargine (Lantus Per Unit Charge) 0 units SC HS [facility]; Protocol Stop: 09/11/25 20:59 Last Admin: 08/12/25 21:04 Dose: Not Given Insulin Glargine (Lantus Per Unit Charge) 30 units SC DAILY [facility] Stop: 09/12/25 08:59 Last Admin: 08/13/25 08:30 Dose: 30 units Isosorbide Mononitrate (Isosorbide [place] Extended Rel 60 Mg Tabcr) [address] [facility] Stop: 09/11/25 08:59 Last Admin: 08/13/25 08:28 Dose: 60 mg Lisinopril (Lisinopril 5 Mg Tab) [address] [facility] Stop: 09/11/25 08:59 Last Admin: 08/13/25 08:29 Dose: 5 mg Metoprolol Tartrate (Metoprolol Tartrate 50 Mg Tab) [address] [facility] Stop: 09/11/25 08:59 Last Admin: 08/13/25 08:28 Dose: 50 mg Miscellaneous (Carbohydrates For Hypoglycemia ) 15 - 30 gm PO UD PRN PRN Reason: Hypoglycemia Treatment Stop: 09/10/25 20:44 Miscellaneous Information (Pharmacy Glycemic Mgmt Consult) 1 each N/A UD PRN PRN Reason: Consult Stop: 09/10/25 19:14 Naloxone HCl (Naloxone Hcl 0.4 Mg/1 Ml Vial/Carp) 0.1 mg IV Q5M PRN PRN Reason: Oversedation/Resp depression Stop: 09/10/25 19:14 Ondansetron HCl (Ondansetron Inj 2 Mg/Ml 2 Ml Vial) 4 mg IV Q6H PRN PRN Reason: Nausea &/or Vomiting Stop: 09/10/25 19:14 Ondansetron HCl (Ondansetron 4 Mg Od Tab) 4 mg PO Q6H PRN PRN Reason: Nausea Stop: 09/10/25 19:14 Oxycodone HCl (Oxycodone Hcl Ir 5 Mg Tab (Immediate Release)) 5 - 10 mg PO Q4H PRN PRN Reason: MOD/SEV Pain & Pre PT Stop: 08/25/25 19:14 Last Admin: 08/13/25 10:47 Dose: 10 mg Pneumococcal Polyvalent Vaccine (Do Not Administer Pneumococcal Vaccine) 1 each N/A PRN PRN PRN Reason: Notification Stop: 09/10/25 19:14 Polyethylene Glycol (Polyethylene (Miralax) 17 Gm Pack) 17 gm PO Q6 [facility] Stop: 09/11/25 05:59 Last Admin: 08/13/25 13:28 Dose: 17 gm Senna/Docusate Sodium (Docusate Sodium/Senna 50/8.6mg Tab) 2 tab PO HS [facility] Stop: 09/10/25 20:59 Last Admin: 08/12/25 20:58 Dose: 2 tab Tizanidine HCl (Tizanidine Hcl 4 Mg Tablet) 4 mg PO Q8H PRN PRN Reason: Muscle Spasm Stop: 09/10/25 19:14 Vitamin D (Cholecalciferol 25 Mcg (1000 Units) Tab) 50 mcg PO QAM [facility] Stop: 09/11/25 08:59 Last Admin: 08/13/25 08:29 Dose: 50 mcg
[2025-08-13] MEDS: GABAPENTIN 300 MG CAP PO SCH (14:58)
--- NOTE | 2025-08-14 07:48 | Orthopedic Progress Note ---
Date of Service August 14, 2025 Assessment & Plan (1) Status post lumbar spinal fusion: * Continue Current Treatment * Disposition: home self care * Daily treatment: Physical Therapy/ Occupational Therapy per protocol * Weight bearing status: full as tolerated * Continue to monitor for ABLA * Pain control * DVT prophylaxis, ASA * Office/hospital f/u 2 weeks for progress check and staple/suture removal * Plan for discharge today pending PT/OT clearance Subjective .Active Problems: S/p L5-S1 Anterior Lumbar Interbody Fusion with Cage Posterior Fusion Percutaneous Instrumentation POD 3 59 y/o male s/p L5-S1 Anterior Lumbar Interbody Fusion with Cage Posterior Fusion Percutaneous Instrumentation. Doing well overall, pain managed and improved function. Denies fever/chills, chest pain/SOB, nausea/vomiting. Notes LLE thigh and calf spasm with activity. No back pain. Pt was able to ambulate with PT yesterday and feels he would like to go home today. Review of Systems All systems reviewed & are unremarkable except as noted in HPI & below. Physical Exam . Musculoskeletal: Anterior and posterior surgical dressings CDI. Lumbar spine region without obvious deformity or overlying skin changes. Minimal tenderness of surgical region, otherwise no tenderness b/l buttock or LE. Lumbar flexion/e xtension and rotation ROM with minimal pain. AROM b/l hip flexion, knee flexion/extension, ankle flexion/extension intact. Sensation intact plantar/dorsal foot. Brisk capillary refill. Results & Data Results & Data Laboratory Results . Laboratory Results - last 24 hr 08/13/25 08/13/25 08/13/25 11:21 16:18 20:21 POC Glucose 125 H 109 H 165 H 08/14/25 07:31 POC Glucose 191 H Diagnostic Findings Lumbar Spine X-Ray 08/12/25 07:00 XR lumbar spine 2-3V HISTORY: 59 years-old Male post-op spine surgery COMPARISON: Lumbar spine CT 08/11/2025 TECHNIQUE: 2 views of the lumbar spine FINDINGS: Interbody robb and screw fusion with discectomy at L5-S1 with posterior skin cornelio. Chronic L5 pars defects with grade 1 anterolisthesis redemonstrated. Mild multilevel intervertebral disc space narrowing and spondylotic spurring again noted. IMPRESSION: Status post discectomy with posterior interbody robb and screw fusion at L5-S1. ACT 112: Negative or not required by law. The above report was generated using voice recognition software. It may contain grammatical, syntax or spelling errors. Electronically signed by: Karl Stone M.D. 08/12/2025 10:45 AM Venous Doppler Study 08/12/25 09:40 LEFT LOWER EXTREMITY VENOUS DOPPLER HISTORY: Acute pain and swelling of the lower legs R/O DVT COMPARISON STUDY: None. FINDINGS: There is normal compressibility, flow, and augmentation within the left lower extremity deep venous system. IMPRESSION: No DVT within the left lower extremity. ACT 112: Negative or not required by law. Electronically signed by: Karl Stone M.D. 08/12/2025 10:31 AM . PG Care Time/CCT Total # of Minutes Spent Total Time Spent with Patient: Total time spent is greater than 50% in coordination of care (as documented) at patient's floor/unit and/or counseling patient: Coding Level of Care Code 00662 Post Operative Follow-Up Diagnoses Status post lumbar spinal fusion Z98.1
--- NOTE | 2025-08-14 07:50 | Discharge Summary ---
Date of Service August 15, 2025 Admission HPI (Per Admitting) Patient returns for follow-up regarding his upcoming surgery on August 11, anterior interbody fusion with posterior instrumentation fusion decompression at L5-S1. Patient states that he continues with the same symptomatology. No changes on exam pain indicated lower lumbar spine no focal motor weakness today on exam. 4 views lumbar spine taken for 03/21/25 office AP lateral flexion-extension views reveals the patient's main findings to be at L5-S1 where he has notable loss of disc space height, there is a pars defect evident, he has grade 1 anterolisthesis present. The other levels maintain reasonable disc base height, no evidence of instability at the other levels. Review of MRI images of the lumbar spine from [facility] from March 16, 2025, this my Sefter interpretation, this reveals the main findings to be at L5-S1 where there is notable loss of disc base height degenerative changes grade 1 anterolisthesis of 9 mm. There is foraminal stenosis more so on the right side, of note is there is a slight disc bulge and some loss of signal intensity at L4- 5 with facet changes at L4-5, lesser findings at L3-4 and L2-3 is relatively unremarkable. There is some degenerative changes at L1-2 but no significant central stenosis at these levels. Review of CT scan images of the lumbar spine from [facility] from July 29, 2025, this is my separate interpretation, this reveals the findings as noted at L5-S1 with grade 1 bordering grade 2 spondylolisthesis with bilateral spondylolysis, there is some limited ossification anteriorly more so to the right. Impression: L5 spondylolysis with grade 1/grade 2 spondylolisthesis L5-S1. Plan: Today in talking with the patient, he is in the process of eliminating the tobacco products which he will do by the end of this week leading up to the surgery next week. I also discussed the bone stimulator which he will be utilizing, and also limitations in activities. 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 Principal Diagnosis Same as "Discharge Diagnosis" noted below under Discharge Instructions. Discharge Exam . Musculoskeletal: Anterior and posterior surgical dressings CDI. Lumbar spine region without obvious deformity or overlying skin changes. Minimal tenderness of surgical region, otherwise no tenderness b/l buttock or LE. Lumbar flexion/extension and rotation ROM with minimal pain. AROM b/l hip flexion, knee flexion/extension, ankle flexion/extension intact. Sensation intact plantar/dorsal foot. Brisk capillary refill. Discharge Data Consultations 08/11/25 20:10 Consult Hospitalist Routine Procedures Performed Operation Date: 08/11/25 09:20 Actual Procedures p L5-S1 Anterior Lumbar Interbody Fusion with Cage Posterior Fusion Percutaneous Instrumentation with Spinal Cord Monitoring(Not Applicable) - Bertin Briones MD Ordered Studies 08/11/25 09:20 CT lumbar spine wo con Routine FL lumbar spine 2-3V Routine 08/12/25 09:40 US venous doppler LE LT Urgent PG Care Time/CCT Total # of Minutes Spent Total Time Spent with Patient: Total time spent is greater than 50% in coordination of care (as documented) at patient's floor/unit and/or counseling patient: Discharge Plan Discharge Items Patient Disposition: Home - Self-Care Reason For Visit: Low Back Pain Radiating to Left Lower Extremity Discharge Diagnosis: s/p L5-S1 Anterior Lumbar Interbody Fusion with Cage Posterior Fusion Activity: Per Instructions section Lifting: No more than 10 pounds Bathing: May shower/bathe in 3 days Weightbearing: Full weightbearing Non-emergency contact: Surgeon Call non-emergency contact if: you have any medication questions, your pain is not controlled, your temperature is above 101.5, your wound has increased redness, your wound has increased drainage and your wound pain has increased Follow-up/Referrals: Bertin Broines MD [Surgeon] - 08/28/25 Jhonatan Hoang PA-C [Primary Care Provider] - (Date & Time 08/21/2025 10:00 AM Provider: Jhonatan Hoang PA-C [facility] ) Diet: Regular Addtl Attending Provider Instructions: May shower on 3rd day after surgery. You can wash the incision and surgical site with soap and water briefly and then blot dry with a clean towel/cloth. Cover with a new, sterile dry dressing. If unable to change your dressing, then leave hospital dressing intact and cover the area for showering. Do NOT soak incision. No strenuous activity, lifting, or exercise until further instructed. Use the prescribed pain medication, or [id number] Tylenol, as needed for pain relief -- follow directions on the bottle; limit Tylenol to 4,000 mg maximum in a 24-hour period. No use of NSAIDs (i.e ibuprofen/Advil/Motrin, naproxen/Aleve, etc.) for at least 2 months after surgery Pending Studies at Discharge: No Stand-Alone Forms: [facility], Smoking Cessation Medications and DC Order Prescriptions: New gabapentin 300 mg Capsule 300 mg PO TID Qty: 30 1RF oxycodone 5 mg tablet 5 mg PO Q6H PRN (Reason: pain) Qty: 10 0RF baclofen 10 mg tablet 10 mg PO TID PRN (Reason: muscle spasm) Qty: 30 0RF Continued metformin 500 mg tablet 1,000 mg PO BID glipizide 10 mg tablet 10 mg PO QAM lisinopril 5 mg tablet 5 mg PO QAM nitroglycerin 0.4 mg tablet, sublingual 0 mg sublingual UD PRN (Reason: chest pain ) Patient Comments: very low dose per Rx Instructions: do not exceed 3 doses per episode isosorbide mononitrate 60 mg tablet extended release 24 hr 60 mg PO QAM metoprolol tartrate 25 mg tablet 50 mg PO QAM atorvastatin 80 mg tablet 80 mg PO QAM Mounjaro 5 mg/0.5 mL pen injector 10 mg subcut WK Patient Comments: thinks thursday or thursday? tramadol 50 mg tablet 50 mg PO Q8H PRN (Reason: pain) Qty: 30 0RF cholecalciferol (vitamin D3) [Vitamin D3] 50 mcg (2,000 unit) Capsule 50 mcg PO QAM docusate sodium [Colace] 100 mg Capsule 100 mg PO QAM epinephrine 0.3 mg/0.3 mL Auto-Injector 0.3 mg IM UD PRN (Reason: bee sting allergy ) aspirin 81 mg tablet,delayed release (DR/EC) 81 mg PO DAILY insulin glargine U-300 conc [Toujeo SoloStar U-300 Insulin] 300 unit/mL (1.5 mL) insulin pen 22 - 27 unit SUBCUT TID PRN (Reason: Hyperglycemia) Discharge Orders: Discharge Order (Routine); Ordered 08/15/25 Ordered By: Matteo Steven Admission Data Admit Date/Time: 08/11/25 18:48 Attending Provider: Bertin Briones Admit Provider: Bertin Briones Primary Care Provider: Jhonatan Hoang Other Providers: Julio Vinson Manabendra Other Interventions: Discharge Summary Assessment (RN) Last Done: 08/15/25 11:40
[2025-08-14] MEDS: SODIUM CHLORIDE 0.9% 1,000 ML IV SCH (10:16)
--- NOTE | 2025-08-14 13:48 | Hospitalist Progress Note ---
Date of Service August 14, 2025 Assessment & Plan (1) Post-operative state: Plan: 59-year-old male with past medical history significant for type 2 diabetes, history of HHS, history of DKA, diabetic mononeuropathy, hyperlipidemia, sleep apnea, CAD status post stent, hypertension, obesity, essential tremor, status post back surgery. Has some soreness at surgical site. Afebrile. Denies headache. Vision is okay. No nausea. No cough. No runny nose or sore throat. Denies any chest pain. No shortness of breath. No abdominal pain. Micturating okay. Hemodynamics are okay. Orthostatic hypotension Associated with spasm of the left leg this morning and blood pressure went down to systolic 90 She was started with intravenous fluid He was given baclofen for spasm instructed tizanidine he will not be going home today Postoperative state Status post back surgery Management as per orthospine Denies any significant pain at the back and does not have any radiculopathic pain Minimal pain in the left kneeultrasound did not show any evidence of DVT in the left lower extremity Still complains of spasm involving the left lower extremity Was advised to continue with antispasmodic medication as needed Diabetes Sliding scale Glycemic pharmacy consulted Close monitorblood sugar remains minimally elevated at 162 Blood sugar remains stable Sleep apnea CPAP nightly History of CAD s/p stent On aspirin, statin, Imdur, metoprolol tartrate Denies any cardiac symptoms No issues with palpitation and chest pain Hypertension On metoprolol tartrate, Imdur and lisinopril Blood pressure remains on the upper side at 171/90will not any add any extra me dications for now Hyperlipidemia On statin DVT prophylaxis and disposition As per Ortho Admission and Anticipated Discharge Date Admission Date: August 11, 2025 Subjective 08/12/2025 The patient was seen and examined in medical floor He is a status post L5-S1 anterior lumbar interbody fusion with cage posterior fusion percutaneous instrumentation with spinal cord monitoring on 08/11/2025 Has been feeling much better with minimal pain and does not have any radiculopathic pain Denies any other significant symptoms except some pain in the Left lower extremity 08/13/2025 Patient was seen and examined in medical floor Still complains of pain in the left lower extremity with spasm Has been on antispasmodic and does not take it as needed Denies any other symptoms 08/14/2025 The patient was seen and examined in medical floor He was about to go home today but felt dizzy with ambulation Also had spasm of the left leg and low blood pressure Review of Systems Review of Systems: All systems reviewed and are unremarkable except as noted below Physical Exam Physical Exam: Lying in bed without any acute distress Constitutional: well developed, well nourished, + ill appearing and + obese Eyes: PERRL, conjunctivae normal, anicteric sclerae ENMT: external ear and nose normal, oropharynx normal Neck: trachea midline, no thyromegaly Respiratory: no respiratory distress Auscultation: lungs clear to auscultation bilaterally Cardiovascular: Rate/Rhythm: regular rate and regular rhythm; not tachycardic Heart Sounds: normal S1 and normal S2; no murmur Gastrointestinal (Abdomen): Inspection/Auscultation: normal bowel sounds; abdomen not distended Percussion/Palpation: abdomen soft; abdomen nontender Neurologic: normal touch/pain/proprioception and moves all extremities; no focal motor deficits Lymphatic: no cervical or axillary lymphadenopathy Results & Data Results & Data Vital Signs (Past 12 Hours) Vital Signs Temp Pulse Resp BP BP Pulse Ox O2 Del Method 08/14/25 12:43 107/65 08/14/25 09:56 66 18 92/49 L 99/57 L 94 Room Air 08/14/25 08:15 Room Air 08/14/25 07:06 36.9 C 78 17 129/77 94 Room Air Medications Administered Current Inpatient Medications Acetaminophen (Acetaminophen 500 Mg Tab) 1,000 mg PO Q8H PRN PRN Reason: MILD Pain (1,2,3) & Pre PT Stop: 09/10/25 19:14 Last Admin: 08/12/25 05:08 Dose: 1,000 mg Aspirin (Aspirin 81 Mg Ectab) 81 mg PO DAILY [facility] Stop: 09/11/25 08:59 Last Admin: 08/14/25 09:01 Dose: 81 mg Atorvastatin Calcium (Atorvastatin 40 Mg Tab) 80 mg PO QAM [facility] Stop: 09/11/25 08:59 Last Admin: 08/14/25 09:01 Dose: 80 mg Baclofen (Baclofen 10 Mg Tab) 10 mg PO TID PRN PRN Reason: Muscle Spasm Stop: 09/13/25 13:59 Bisacodyl (Bisacodyl 10 Mg Supp) 10 mg DE DAILY PRN PRN Reason: Constipation Stop: 09/10/25 19:14 Dextrose (Dextrose 50% 50 Ml Syringe) 25 - 50 ml IV UD PRN; Protocol PRN Reason: Hypoglycemia Protocol Stop: 09/10/25 20:44 Diphenhydramine HCl (Diphenhydramine Capsule 25 Mg Cap) 25 mg PO Q6H PRN PRN Reason: Allergic Rhinitis/Insomnia Stop: 09/10/25 19:14 Docusate Sodium (Docusate Sodium 100 Mg Cap) 100 mg PO QAM [facility] Stop: 09/11/25 08:59 Last Admin: 08/14/25 09:02 Dose: Not Given Epinephrine HCl (Epinephrine Adult Auto-Inject 0.3 Mg Syr) 0.3 mg IM UD PRN PRN Reason: bee sting allergy Stop: 09/10/25 19:14 Famotidine (Famotidine 20 Mg Tab) 20 mg PO Q12H PRN PRN Reason: Dyspepsia Stop: 09/10/25 19:14 Gabapentin (Gabapentin 300 Mg Cap) 300 mg PO TID [facility] Stop: 09/12/25 13:59 Last Admin: 08/14/25 09:00 Dose: 300 mg Glucagon (Glucagon For Inj 1 Mg Vial) 1 mg SQ UD PRN; Protocol PRN Reason: Hypoglycemia Protocol Stop: 09/10/25 20:44 Glucose (Glucose 40% Gel 15 Gm Tube) 15 - 30 gm PO UD PRN; Protocol PRN Reason: Hypoglycemia Protocol Stop: 09/10/25 20:44 Glucose (Glucose 10 Tab/Tube) 4 - 8 tab PO UD PRN; Protocol PRN Reason: Hypoglycemia Protocol Stop: 09/10/25 20:44 Hydromorphone HCl (Hydromorphone Inj 0.5 Mg/0.5 Ml Syr) 0.25 mg IV Q5M PRN PRN Reason: Pain Stop: 08/25/25 17:13 Last Admin: 08/11/25 17:26 Dose: 0.25 mg Hydromorphone HCl (Hydromorphone Inj 0.5 Mg/0.5 Ml Syr) 0.5 mg IV Q3H PRN PRN Reason: MODERATE Pain(4,5,6)/Pre PT Stop: 08/25/25 19:14 Last Admin: 08/12/25 20:58 Dose: 0.5 mg Hydromorphone HCl (Hydromorphone Inj 1 Mg/Ml Syringe) 1 mg IV Q3H PRN PRN Reason: SEVERE Pain (7,8,9,10) Stop: 08/25/25 19:14 Last Admin: 08/13/25 07:44 Dose: 1 mg Hydroxyzine HCl (Hydroxyzine Hcl 25 Mg Tab) 25 mg PO Q8H PRN PRN Reason: Anxiety Stop: 09/10/25 19:14 Sodium Chloride (Nss) 1,000 mls @ 125 mls/hr IV .Q8H [facility] Stop: 08/15/25 02:14 Last Admin: 08/14/25 10:16 Dose: 125 mls/hr Influenza Virus Vaccine Quadrival (Do Not Administer Flu Vaccine) 1 each N/A PRN PRN PRN Reason: Notification Stop: 09/10/25 19:14 Insulin Aspart (Insulin Aspart Per Unit Charge) 0 units SC ACHS [facility] Stop: 09/10/25 20:59 Last Admin: 08/14/25 12:32 Dose: 14 units Insulin Glargine (Lantus Per Unit Charge) 30 units SC DAILY [facility] Stop: 09/12/25 08:59 Last Admin: 08/14/25 09:12 Dose: 30 units Isosorbide Mononitrate (Isosorbide [place] Extended Rel 60 Mg Tabcr) 60 mg PO QAM [facility] Stop: 09/11/25 08:59 Last Admin: 08/14/25 09:01 Dose: 60 mg Lisinopril (Lisinopril 5 Mg Tab) 5 mg PO QAM [facility] Stop: 09/11/25 08:59 Last Admin: 08/14/25 09:01 Dose: 5 mg Metoprolol Tartrate (Metoprolol Tartrate 50 Mg Tab) 50 mg PO QAM [facility] Stop: 09/11/25 08:59 Last Admin: 08/14/25 09:01 Dose: 50 mg Miscellaneous (Carbohydrates For Hypoglycemia ) 15 - 30 gm PO UD PRN PRN Reason: Hypoglycemia Treatment Stop: 09/10/25 20:44 Miscellaneous Information (Pharmacy Glycemic Mgmt Consult) 1 each N/A UD PRN PRN Reason: Consult Stop: 09/10/25 19:14 Naloxone HCl (Naloxone Hcl 0.4 Mg/1 Ml Vial/Carp) 0.1 mg IV Q5M PRN PRN Reason: Oversedation/Resp depression Stop: 09/10/25 19:14 Ondansetron HCl (Ondansetron Inj 2 Mg/Ml 2 Ml Vial) 4 mg IV Q6H PRN PRN Reason: Nausea &/or Vomiting Stop: 09/10/25 19:14 Ondansetron HCl (Ondansetron 4 Mg Od Tab) 4 mg PO Q6H PRN PRN Reason: Nausea Stop: 09/10/25 19:14 Oxycodone HCl (Oxycodone Hcl Ir 5 Mg Tab (Immediate Release)) 5 - 10 mg PO Q4H PRN PRN Reason: MOD/SEV Pain & Pre PT Stop: 08/25/25 19:14 Last Admin: 08/13/25 20:56 Dose: 10 mg Pneumococcal Polyvalent Vaccine (Do Not Administer Pneumococcal Vaccine) 1 each N/A PRN PRN PRN Reason: Notification Stop: 09/10/25 19:14 Senna/Docusate Sodium (Docusate Sodium/Senna 50/8.6mg Tab) 2 tab PO HS [facility] Stop: 09/10/25 20:59 Last Admin: 08/13/25 20:56 Dose: 2 tab Vitamin D (Cholecalciferol 25 Mcg (1000 Units) Tab) 50 mcg PO QAM [facility] Stop: 09/11/25 08:59 Last Admin: 08/14/25 09:01 Dose: 50 mcg
[2025-08-15 07:42] LABS: Anion Gap 7.0 (3-11); Blood Urea Nitrogen 11.0 mg/dl (6-23); Calcium 8.6 mg/dl (8.6-10.3); Carbon Dioxide 28.0 mmol/L (21-32); Chloride 102.0 mmol/L (98-107); Creatinine Clr Calc Pharmacy 232.7 ml/min; Glucose 180.0 mg/dl (70-99(Fasting)); Potassium 4.2 mmol/L (3.5-5.1); Sodium 137.0 mmol/L (136-145)
[2025-08-15] MEDS: BACLOFEN 10 MG TAB PO PRN (07:46)
--- NOTE | 2025-08-15 08:13 | Orthopedic Progress Note ---
Date of Service August 15, 2025 Assessment & Plan (1) Status post lumbar spinal fusion: * Continue Current Treatment * Appreciate hospital medicine eval and recommendations regarding hypotension * Disposition: home self care * Daily treatment: Physical Therapy/ Occupational Therapy per protocol * Weight bearing status: full as tolerated * Continue to monitor for ABLA * Pain control * DVT prophylaxis, ASA * Office/hospital f/u 2 weeks for progress check and staple/suture removal * Plan for discharge today pending medical clearance * Patient seen and examined, will mobilize with physical therapy and discharge today. Subjective Active Problems: S/p L5-S1 Anterior Lumbar Interbody Fusion with Cage Posterior Fusion Percutaneous Instrumentation POD 4 59 y/o male s/p L5-S1 Anterior Lumbar Interbody Fusion with Cage Posterior Fusion Percutaneous Instrumentation. Doing well overall, pain managed and improved function. Denies fever/chills, chest pain/SOB, nausea/vomiting. Notes LLE thigh and calf spasm with activity. No back pain. Episode of hypotension while ambulating yesterday, to reevaluate for discharge today. Review of Systems All systems reviewed & are unremarkable except as noted in HPI & below. Physical Exam * Musculoskeletal: Anterior and posterior surgical dressings CDI. Lumbar spine region without obvious deformity or overlying skin changes. Minimal tenderness of surgical region, otherwise no tenderness b/l buttock or LE. Lumbar flexion/extension and rotation ROM with minimal pain. AROM b/l hip flexion, knee flexion/extension, ankle flexion/extension intact. Sensation intact plantar/dorsal foot. Brisk capillary refill. Results & Data Results & Data Laboratory Results . Diagnostic Findings . PG Care Time/CCT Total # of Minutes Spent Total Time Spent with Patient: Total time spent is greater than 50% in coordination of care (as documented) at patient's floor/unit and/or counseling patient: Coding Level of Care Code 43352 Post Operative Follow-Up Diagnoses Status post lumbar spinal fusion Z98.1
[2025-08-15 09:22] VITALS: BP 126/72; PULSE 73; RESP 14; TEMP 98.6; O2SAT 96
[2025-08-15] MEDS: LANTUS PER UNIT CHARGE SC SCH (09:23)
--- NOTE | 2025-08-15 13:14 | Hospitalist Progress Note ---
Date of Service August 15, 2025 Assessment & Plan (1) Post-operative state: Plan: 59-year-old male with past medical history significant for type 2 diabetes, history of HHS, history of DKA, diabetic mononeuropathy, hyperlipidemia, sleep apnea, CAD status post stent, hypertension, obesity, essential tremor, status post back surgery. Has some soreness at surgical site. Afebrile. Denies headache. Vision is okay. No nausea. No cough. No runny nose or sore throat. Denies any chest pain. No shortness of breath. No abdominal pain. Micturating okay. Hemodynamics are okay. Orthostatic hypotension Associated with spasm of the left leg this morning and blood pressure went down to systolic 90 She was started with intravenous fluid He was given baclofen for spasm instructed tizanidine he will not be going home today He has been stable since yesterday following the fluid resuscitation Denies any more symptoms with ambulation He is medically stable to be discharged today Postoperative state Status post back surgery Management as per orthospine Denies any significant pain at the back and does not have any radiculopathic pain Minimal pain in the left kneeultrasound did not show any evidence of DVT in the left lower extremity Still complains of spasm involving the left lower extremity Was advised to continue with antispasmodic medication as needed Diabetes Sliding scale Glycemic pharmacy consulted Close monitorblood sugar remains minimally elevated at 162 Blood sugar remains stable Sleep apnea CPAP nightly History of CAD s/p stent On aspirin, statin, Imdur, metoprolol tartrate Denies any cardiac symptoms No issues with palpitation and chest pain Hypertension On metoprolol tartrate, Imdur and lisinopril Blood pressure remains on the upper side at 171/90will not any add any extra medications for now His blood pressure is maintained at 126/72 Hyperlipidemia On statin DVT prophylaxis and disposition As per Ortho Admission and Anticipated Discharge Date Admission Date: August 11, 2025 Subjective 08/12/2025 The patient was seen and examined in medical floor He is a status post L5-S1 anterior lumbar interbody fusion with cage posterior fusion percutaneous instrumentation with spinal cord monitoring on 08/11/2025 Has been feeling much better with minimal pain and does not have any radiculopathic pain Denies any other significant symptoms except some pain in the Left lower extremity 08/13/2025 Patient was seen and examined in medical floor Still complains of pain in the left lower extremity with spasm Has been on antispasmodic and does not take it as needed Denies any other symptoms 08/14/2025 The patient was seen and examined in medical floor He was about to go home today but felt dizzy with ambulation Also had spasm of the left leg and low blood pressure 08/15/2025 Patient was seen and examined in medical floor He has been stable following fluid resuscitation Denies any significant symptoms and does not have any more dizziness Blood pressure is maintained Review of Systems Review of Systems: All systems reviewed and are unremarkable except as noted below Physical Exam Physical Exam: Lying in bed without any acute distress Constitutional: well developed, well nourished, + ill appearing and + obese Eyes: PERRL, conjunctivae normal, anicteric sclerae ENMT: external ear and nose normal, oropharynx normal Neck: trachea midline, no thyromegaly Respiratory: no respiratory distress Auscultation: lungs clear to auscultation bilaterally Cardiovascular: Rate/Rhythm: regular rate and regular rhythm; not tachycardic Heart Sounds: normal S1 and normal S2; no murmur Gastrointestinal (Abdomen): Inspection/Auscultation: normal bowel sounds; abdomen not distended Percussion/Palpation: abdomen soft; abdomen nontender Neurologic: normal touch/pain/proprioception and moves all extremities; no focal motor deficits Lymphatic: no cervical or axillary lymphadenopathy Results & Data Results & Data Vital Signs (Past 12 Hours) Vital Signs Temp Pulse Resp BP Pulse Ox O2 Del Method 08/15/25 09:21 37 C 73 14 126/72 96 Room Air 08/15/25 07:50 Room Air 08/15/25 07:50 36.7 C 75 16 155/91 H 99 Room Air Laboratory Results [facility] 08/15/25 06:27 Sodium 137 Potassium 4.2 Chloride 102 Carbon Dioxide 28 BUN 11 Creatinine 0.46 L Glucose 180 H Calcium 8.6
--- NOTE | 2025-08-16 14:45 | Operative Report ---
PG Post Operative Report Pre & Post Diagnosis Operation Date: 08/11/25 09:20 Pre-Op Diagnosis: (1) Low back pain radiating to left lower extremity (2) Spondylolisthesis, grade 1 (3) Spondylolysis of lumbar region (4) Lumbar radiculopathy Post-Op Diagnosis: (1) Low back pain radiating to left lower extremity (2) Spondylolisthesis, grade 1 (3) Spondylolysis of lumbar region (4) Lumbar radiculopathy I identified the patient and participated in the time-out.: Yes Procedure Operation Date: 08/11/25 09:20 Actual Procedures p L5-S1 Anterior Lumbar Interbody Fusion with Cage Posterior Fusion Percutaneous Instrumentation with Spinal Cord Monitoring(Not Applicable) - Bertin Briones MD Surgeon eBrtin Briones MD Director Facilities Maintenance [place] Estimated Blood Loss 500 Findings Consistent with Post-Op Diagnosis Specimens None Description of Procedure 1. L5-S1 anterior lumbar arthrodesis. (14856) 2. Insertion of intervertebral cage, camber Spira a 30 x 42 x 13 mm 8 degrees. (55233) 3. Posterior nonsegmental instrumentation, Medtronic Solera Voyager. (07561) 4. Stereotactic CT guided navigation for instrumentation. (64851) Patient was taken operating room after adequate anesthesia was carefully positioned supine on the OSI flattop table. This time a preprep was performed of the abdominal region, this was done in conjunction with Dr. Cottrell the approach surgeon. After doing so fluoroscopy was brought in, the approximate location for the incision was marked, prep and drape was performed. The procedure was started with the approach to the L5-S1 level performed by Dr. Cottrell. Once we were able to gain access to the L5-S1 level retractors were set, the location was confirmed via fluoroscopy. I performed an anterior annulotomy and then moved into the disc space removing the anterior annulus and then doing a thorough discectomy at the L5-S1 level. This included not only removal of the disc material but a thorough scraping of the endplates to remove cartilage, and then moving out on either side or removing some of the posterior spondylosis and doing a adequate discectomy of this level. Using fluoroscopic control we then went through trials selecting the size cage as noted, the implant was then obtained. Fusion materials were packed within this cage, I tapped it into position using fluoroscopic control with excellent position on AP and lateral views. I inserted a single screw inferiorly into S1, 30 mm in length, 6.5 mm in diameter with excellent purchase. The operative site was inspected no issues were noted, additional fusion materials were then placed anteriorly, and at this point the operative site was then closed in layers with cornelio for the skin sterile dressing was applied. Patient was moved prone on a Jesus frame, a preprep was performed, followed by prep and drape. A right posterior iliac pin was then placed followed by pre and the O-arm, a spin was performed. Upon completion I used navigation to armen the area for the insertion of screws on both the right and left side for L5 and S1. Small incision was then made bilaterally for the insertion of the S1 screw, advanced down through the subcutaneous tissues, I inserted the bur which was navigated onto the L5-S1 facet region and then burred the start hole bilaterally. From here I advanced a gearshift probe, this was monitored both using navigation and also monitoring system. Tap was inserted and I was able to insert two 6.5 screws from the Medtronic set 50 mm in length. Once these were in position I extended the incisions on both sides to incorporate the start point for the L5 screws, once again using the same technique for starting with the high-speed bur, gearshift probe and then tapped which was checked with monitoring system, I inserted additional screws 50 mm in length and to L5. A new spin was then performed with the O-arm confirming the proper location of the instrumentation. Fluoroscopy was then brought back into the room, I used this for inserting the rods these were set slightly proud, the screws were set and locked into position at S1, being slightly proud for L5. The setscrews were then inserted at L5 and then tightened down, this allowed for improvement of the alignment of the L5 vertebral body now mobilized posteriorly to a better position. All setscrews were torqued down properly. Operative site was irrigated vancomycin powder was placed. Deep 0 Vicryl sutures were placed followed by 2-0 Vicryl sutures and cornelio for the skin. Sterile dressing was applied, the patient was taken recovery room in satisfactory condition. I attest to the content of the Intraoperative Record and any orders documented therein. Any exceptions are noted below.
== END 2025-08-15 12:02 | disposition home or self-care (01) | DRG 451 ==
LOC: ASU 08:12 → 3W 18:48